=== PATIENT | male | born 1970 | race Caucasian/White ===

== ENCOUNTER → 2023-10-01 07:26 | Outpatient (REF) | payer OTHER, SELFPAY ==
[2023-10-01 08:00] VITALS: BP 114/89; BP_SYST 67
[2023-10-01 10:23] VITALS: BP 113/76
[2023-10-01 11:36] LABS: Body Fluid Mononuclear 67.5 %; Body Fluid Polymorphonuclear 32.5 %; Body Fluid WBC 151 /CUMM
[2023-10-01 11:44] LABS: Body Fluid Second Tech EF
== END ==
LOC: RADI 07:26
PROVIDERS: ATTENDING PHYSICIAN Internal Medicine Gastroenterology
DX: R18.8 Other ascites (principal)
CPT/HCPCS: 49083; 87015; 87070; 87205; 89051

== ENCOUNTER 2023-10-07 06:24 | Day surgery (SDC) | payer OTHER, SELFPAY ==
[2023-10-07 08:23] VITALS: BMI 24.1
[2023-10-07 08:24] VITALS: BP 125/88
[2023-10-07] MEDS: CIPRO 400 MG 200 IV (09:31)
[2023-10-07 10:45] VITALS: BP 130/70
[2023-10-07 11:00] VITALS: BP 128/74
== END 2023-10-07 11:25 | disposition home or self-care (01) ==
LOC: GI 06:24
PROVIDERS: ATTENDING PHYSICIAN Internal Medicine Gastroenterology
DX: Z12.11 Encounter for screening for malignant neoplasm of colon (principal); K64.8 Other hemorrhoids; K55.20 Angiodysplasia of colon without hemorrhage; K74.60 Unspecified cirrhosis of liver; K76.6 Portal hypertension; K31.89 Other diseases of stomach and duodenum; I85.10 Secondary esophageal varices without bleeding; K29.50 Unspecified chronic gastritis without bleeding
CPT/HCPCS: 43244; 43239; G0121; 88305; 88342

== ENCOUNTER → 2023-10-08 07:28 | Outpatient (REF) | payer OTHER, SELFPAY ==
[2023-10-08 07:45] VITALS: BP 130/89; BP_SYST 72
[2023-10-08 08:54] VITALS: BP 115/92
[2023-10-08 09:40] LABS: Body Fluid WBC 143 /CUMM
[2023-10-08 09:49] LABS: Body Fluid Second Tech AMA
== END ==
LOC: RADI 07:28
PROVIDERS: ATTENDING PHYSICIAN Internal Medicine Gastroenterology
DX: R18.8 Other ascites (principal)
CPT/HCPCS: 49083; 87015; 87070; 87205; 89051

== ENCOUNTER → 2023-10-15 06:55 | Outpatient (REF) | payer OTHER, SELFPAY ==
[2023-10-15 07:10] VITALS: BP 124/85; BP_SYST 75
[2023-10-15 08:25] VITALS: BP 118/74; BP_SYST 75
[2023-10-15 08:53] LABS: Body Fluid Mononuclear 65.5 %; Body Fluid Polymorphonuclear 34.5 %; Body Fluid WBC 209 /CUMM
[2023-10-15 09:04] LABS: Body Fluid Second Tech EM
== END ==
LOC: RADI 06:55
PROVIDERS: ATTENDING PHYSICIAN Internal Medicine Gastroenterology
DX: R18.8 Other ascites (principal)
CPT/HCPCS: 49083; 87015; 87070; 87205; 89051

== ENCOUNTER → 2023-10-21 08:27 | Outpatient (REF) | payer OTHER, SELFPAY ==
[2023-10-21 08:49] VITALS: BP 131/74; BP_SYST 83
[2023-10-21 09:37] VITALS: BP 109/74; BP_SYST 68
[2023-10-21 10:22] VITALS: BP 109/74
[2023-10-21 11:19] LABS: Body Fluid Mononuclear 74.1 %; Body Fluid Polymorphonuclear 25.9 %; Body Fluid WBC 162 /CUMM
[2023-10-21 11:21] LABS: Body Fluid Second Tech EF
== END ==
LOC: RADI 08:27
PROVIDERS: ATTENDING PHYSICIAN Internal Medicine Gastroenterology
DX: R18.8 Other ascites (principal)
CPT/HCPCS: 49083; 87015; 87070; 87205; 89051

== ENCOUNTER → 2023-10-26 10:56 | Outpatient (REF) | payer OTHER, SELFPAY ==
[2023-10-26 11:15] VITALS: BP 135/88; BP_SYST 79
[2023-10-26 12:12] VITALS: BP 127/68
[2023-10-26 13:37] LABS: Body Fluid Mononuclear 77.6 %; Body Fluid Polymorphonuclear 22.4 %; Body Fluid WBC 138 /CUMM
[2023-10-26 14:26] LABS: Body Fluid Second Tech SS
== END ==
LOC: RADI 10:56
PROVIDERS: ATTENDING PHYSICIAN Internal Medicine Gastroenterology; FAMILY PHYSICIAN Internal Medicine
DX: R18.8 Other ascites (principal)
CPT/HCPCS: 49083; 87015; 87070; 87205; 89051

== ENCOUNTER 2023-10-26 12:51 | Outpatient (RCR) | payer OTHER, SELFPAY ==
[2023-10-08 09:15] VITALS: BP 114/75
[2023-10-08 09:34] VITALS: BP 114/75
[2023-10-08] MEDS: FLEXBUMIN 100 IV (09:34)
[2023-10-08] MEDS: FLEXBUMIN 50 IV (10:54)
[2023-10-08 10:55] VITALS: BP 92/65
[2023-10-08 11:30] VITALS: BP 93/65
[2023-10-15] MEDS: FLEXBUMIN 50 IV (08:52)
[2023-10-15 08:56] VITALS: BP 141/63
[2023-10-15] MEDS: FLEXBUMIN 100 IV (09:36)
[2023-10-15 09:37] VITALS: BP 99/60
[2023-10-15 10:55] VITALS: BP 105/60
[2023-10-21 10:40] VITALS: BP 95/63
[2023-10-21] MEDS: FLEXBUMIN 50 IV (10:51)
[2023-10-21 10:54] VITALS: BP 95/63
[2023-10-21] MEDS: FLEXBUMIN 100 IV (11:39)
[2023-10-21 11:40] VITALS: BP 90/56
[2023-10-21 13:11] VITALS: BP 101/66
[2023-10-26 12:59] VITALS: BP 110/78
[2023-10-26 13:12] VITALS: BP 112/62
[2023-10-26] MEDS: FLEXBUMIN 50 IV (13:12)
[2023-10-26 14:30] VITALS: BP 110/61
[2023-10-26] MEDS: FLEXBUMIN 100 IV (14:30)
[2023-10-26 16:00] VITALS: BP 112/60
== END 2023-10-27 08:21 | disposition home or self-care (01) ==
LOC: OID 12:51
PROVIDERS: ATTENDING PHYSICIAN Internal Medicine Gastroenterology; FAMILY PHYSICIAN Internal Medicine
DX: K70.31 Alcoholic cirrhosis of liver with ascites (principal)
CPT/HCPCS: 96365; 96366; P9047

== ENCOUNTER → 2023-10-29 06:58 | Outpatient (REF) | payer OTHER, SELFPAY ==
[2023-10-29 07:17] VITALS: BP 117/72; BP_SYST 71
[2023-10-29 08:16] VITALS: BP 114/58
[2023-10-29 08:42] LABS: Body Fluid Mononuclear 79.5 %; Body Fluid Polymorphonuclear 20.5 %; Body Fluid WBC 200 /CUMM
[2023-10-29 08:51] LABS: Body Fluid Second Tech AMA
== END ==
LOC: RADI 06:58
PROVIDERS: ATTENDING PHYSICIAN Internal Medicine Gastroenterology; FAMILY PHYSICIAN Internal Medicine
DX: R18.8 Other ascites (principal)
CPT/HCPCS: 49083; 87015; 87070; 87205; 89051

== ENCOUNTER → 2023-11-04 13:29 | Outpatient (REF) | payer OTHER, SELFPAY | LOC: RAD 13:29 | PROVIDERS: ATTENDING PHYSICIAN Internal Medicine Transplant Hepatology; FAMILY PHYSICIAN Internal Medicine | DX: Z01.818 Encounter for other preprocedural examination (principal) | CPT/HCPCS: 71046 ==

== ENCOUNTER → 2023-11-05 07:38 | Outpatient (REF) | payer OTHER, SELFPAY ==
[2023-11-05 07:51] VITALS: BP 120/77; BP_SYST 86
[2023-11-05 08:55] VITALS: BP 107/70
[2023-11-05 09:03] LABS: Body Fluid Mononuclear 72.3 %; Body Fluid Polymorphonuclear 27.7 %; Body Fluid WBC 181 /CUMM
[2023-11-05 09:05] LABS: Body Fluid Second Tech AMA
== END ==
LOC: RADI 07:38
PROVIDERS: ATTENDING PHYSICIAN Internal Medicine Gastroenterology
DX: R18.8 Other ascites (principal)
CPT/HCPCS: 49083; 87015; 87070; 87205; 89051

== ENCOUNTER → 2023-11-09 07:22 | Outpatient (REF) | payer OTHER, SELFPAY ==
[2023-11-09 07:40] VITALS: BP 123/82; BP_SYST 78
[2023-11-09 08:35] VITALS: BP 109/77; BP_SYST 75
[2023-11-09 09:00] VITALS: BP 109/77
[2023-11-09 09:11] LABS: Body Fluid Mononuclear 68.9 %; Body Fluid Polymorphonuclear 31.1 %; Body Fluid WBC 135 /CUMM
[2023-11-09 09:22] LABS: Body Fluid Second Tech AMA
== END ==
LOC: RADI 07:22
PROVIDERS: ATTENDING PHYSICIAN Internal Medicine Gastroenterology
DX: R18.8 Other ascites (principal)
CPT/HCPCS: 49083; 87015; 87070; 87205; 89051

== ENCOUNTER → 2023-11-12 07:27 | Outpatient (REF) | payer OTHER, SELFPAY ==
[2023-11-12 07:37] VITALS: BP 113/70; BP_SYST 71
[2023-11-12 08:14] VITALS: BP 110/59
[2023-11-12 08:57] LABS: Body Fluid Polymorphonuclear 17.1 %; Body Fluid WBC 199 /CUMM
[2023-11-12 08:58] LABS: Body Fluid Mononuclear 82.9 %
[2023-11-12 09:02] LABS: Body Fluid Second Tech AMA
== END ==
LOC: RADI 07:27
PROVIDERS: ATTENDING PHYSICIAN Internal Medicine Gastroenterology; FAMILY PHYSICIAN Internal Medicine
DX: R18.8 Other ascites (principal)
CPT/HCPCS: 49083; 87015; 87070; 87205; 89051

== ENCOUNTER → 2023-11-19 07:21 | Outpatient (REF) | payer OTHER, SELFPAY ==
[2023-11-19 07:43] VITALS: BP 115/67; BP_SYST 72
[2023-11-19 10:36] LABS: Body Fluid Mononuclear 80.9 %; Body Fluid Polymorphonuclear 19.1 %; Body Fluid WBC 178 /CUMM
[2023-11-19 10:40] LABS: Body Fluid Second Tech AMA
== END ==
LOC: RADI 07:21
PROVIDERS: ATTENDING PHYSICIAN Internal Medicine Gastroenterology; FAMILY PHYSICIAN Internal Medicine
DX: R18.8 Other ascites (principal)
CPT/HCPCS: 49083; 87015; 87070; 87205; 89051

== ENCOUNTER → 2023-11-26 07:19 | Outpatient (REF) | payer OTHER, SELFPAY ==
[2023-11-26 07:20] VITALS: BP 124/75; BP_SYST 72
[2023-11-26 08:30] VITALS: BP 100/60; BP_SYST 70
[2023-11-26 09:00] LABS: Body Fluid Mononuclear 83.3 %; Body Fluid Polymorphonuclear 16.7 %; Body Fluid WBC 150 /CUMM
[2023-11-26 09:01] LABS: Body Fluid Second Tech CF
[2023-11-26 09:08] VITALS: BP 100/60
== END ==
LOC: RADI 07:19
PROVIDERS: ATTENDING PHYSICIAN Internal Medicine Gastroenterology; FAMILY PHYSICIAN Internal Medicine
DX: R18.8 Other ascites (principal)
CPT/HCPCS: 49083; 87015; 87070; 87205; 89051

== ENCOUNTER 2023-11-26 08:54 | Outpatient (RCR) | payer OTHER, SELFPAY ==
[2023-11-05 09:20] VITALS: BP 120/62
[2023-11-05 09:24] VITALS: BP 120/62
[2023-11-05] MEDS: FLEXBUMIN 50 IV (09:24)
[2023-11-05] MEDS: FLEXBUMIN 100 IV (10:06)
[2023-11-05 10:07] VITALS: BP 109/58
[2023-11-05 11:30] VITALS: BP 109/55
[2023-11-09 09:05] VITALS: BP 117/68
[2023-11-09] MEDS: FLEXBUMIN 50 IV (09:05)
[2023-11-09 09:10] VITALS: BP 117/68
[2023-11-09] MEDS: FLEXBUMIN 100 IV (09:52)
[2023-11-09 10:00] VITALS: BP 118/73
[2023-11-09 11:19] VITALS: BP 97/65
[2023-11-19 09:10] VITALS: BP 110/59
[2023-11-19 09:17] VITALS: BP 110/59
[2023-11-19] MEDS: FLEXBUMIN 50 IV (09:17)
[2023-11-19] MEDS: FLEXBUMIN 100 IV (10:04)
[2023-11-19 10:07] VITALS: BP 99/54
[2023-11-19 11:35] VITALS: BP 90/43
[2023-11-26 09:05] VITALS: BP 104/73
[2023-11-26 09:12] VITALS: BP 104/73
[2023-11-26] MEDS: FLEXBUMIN 100 IV (09:12)
[2023-11-26] MEDS: FLEXBUMIN 50 IV (10:38)
[2023-11-26 10:40] VITALS: BP 84/63
[2023-11-26 11:20] VITALS: BP 100/50
== END 2023-11-28 23:59 | disposition home or self-care (01) ==
LOC: OID 08:54
PROVIDERS: ATTENDING PHYSICIAN Internal Medicine Gastroenterology; FAMILY PHYSICIAN Internal Medicine
DX: K70.31 Alcoholic cirrhosis of liver with ascites (principal)
CPT/HCPCS: 96365; 96366; P9047

== ENCOUNTER → 2023-12-03 07:16 | Outpatient (REF) | payer OTHER, SELFPAY ==
[2023-12-03 07:40] VITALS: BP 121/83; BP_SYST 70
[2023-12-03 09:00] VITALS: BP 108/64
[2023-12-03 09:18] LABS: Body Fluid Polymorphonuclear 17.5 %; Body Fluid WBC 120 /CUMM
[2023-12-03 09:19] LABS: Body Fluid Mononuclear 82.5 %
[2023-12-03 09:20] LABS: Body Fluid Second Tech AMA
== END ==
LOC: RADI 07:16
PROVIDERS: ATTENDING PHYSICIAN Internal Medicine Gastroenterology; FAMILY PHYSICIAN Internal Medicine
DX: R18.8 Other ascites (principal)
CPT/HCPCS: 49083; 87015; 87070; 87205; 89051

== ENCOUNTER → 2023-12-10 07:18 | Outpatient (REF) | payer OTHER, SELFPAY ==
[2023-12-10 07:33] VITALS: BP 120/82; BP_SYST 85
[2023-12-10 08:34] VITALS: BP 106/60
[2023-12-10 10:28] LABS: Body Fluid WBC 101 /CUMM
[2023-12-10 10:29] LABS: Body Fluid Mononuclear 82.1 %; Body Fluid Polymorphonuclear 17.9 %
[2023-12-10 10:30] LABS: Body Fluid Second Tech EF
== END ==
LOC: RADI 07:18
PROVIDERS: ATTENDING PHYSICIAN Internal Medicine Gastroenterology
DX: R18.8 Other ascites (principal)
CPT/HCPCS: 49083; 87015; 87070; 87205; 89051

== ENCOUNTER 2023-12-10 08:57 | Outpatient (RCR) | payer OTHER, SELFPAY ==
[2023-12-03 09:10] VITALS: BP 98/48
[2023-12-03 09:12] VITALS: BP 98/48
[2023-12-03] MEDS: FLEXBUMIN 100 IV (09:12)
[2023-12-03 09:15] VITALS: BP 98/48
[2023-12-03] MEDS: FLEXBUMIN 50 IV (10:44)
[2023-12-03 10:46] VITALS: BP 98/48
[2023-12-03 11:45] VITALS: BP 94/49
[2023-12-10 09:10] VITALS: BP 102/66
[2023-12-10] MEDS: FLEXBUMIN 50 IV (09:10)
[2023-12-10] MEDS: FLEXBUMIN 100 IV (09:53)
[2023-12-10 09:54] VITALS: BP 95/60
[2023-12-10 11:20] VITALS: BP 90/54
== END 2023-12-28 15:24 | disposition home or self-care (01) ==
LOC: OID 08:57
PROVIDERS: ATTENDING PHYSICIAN Internal Medicine Gastroenterology; FAMILY PHYSICIAN Internal Medicine
DX: K70.31 Alcoholic cirrhosis of liver with ascites (principal)
CPT/HCPCS: 49083; 87015; 87070; 87205; 89051; 96365; 96366; P9047

== ENCOUNTER → 2023-12-24 07:22 | Outpatient (REF) | payer OTHER, SELFPAY ==
[2023-12-24 07:49] VITALS: BP 124/77; BP_SYST 70
[2023-12-24 09:16] VITALS: BP 131/77
[2023-12-24 09:34] LABS: Body Fluid Mononuclear 82.9 %; Body Fluid Polymorphonuclear 17.1 %; Body Fluid WBC 152 /CUMM
[2023-12-24 09:35] LABS: Body Fluid Second Tech CS
== END ==
LOC: RADI 07:22
PROVIDERS: ATTENDING PHYSICIAN Internal Medicine Gastroenterology; FAMILY PHYSICIAN Internal Medicine
DX: R18.8 Other ascites (principal)
CPT/HCPCS: 49083; 87015; 87070; 87205; 89051

== ENCOUNTER → 2023-12-31 07:18 | Outpatient (REF) | payer OTHER, SELFPAY ==
[2023-12-31 07:45] VITALS: BP 127/78; BP_SYST 71
[2023-12-31 08:58] LABS: Body Fluid WBC 151 /CUMM
[2023-12-31 08:59] LABS: Body Fluid Mononuclear 74.8 %; Body Fluid Polymorphonuclear 25.2 %
[2023-12-31 09:02] LABS: Body Fluid Second Tech AMA
== END ==
LOC: RADI 07:18
PROVIDERS: ATTENDING PHYSICIAN Internal Medicine Gastroenterology; FAMILY PHYSICIAN Internal Medicine
DX: R18.8 Other ascites (principal)
CPT/HCPCS: 49083; 87015; 87070; 87205; 89051

== ENCOUNTER → 2024-01-07 07:20 | Outpatient (REF) | payer OTHER, SELFPAY ==
[2024-01-07 07:30] VITALS: BP 127/84; BP_SYST 73
[2024-01-07 08:31] VITALS: BP 115/79; BP_SYST 74
[2024-01-07 08:37] VITALS: BP 115/79
[2024-01-07 10:17] LABS: Body Fluid Mononuclear 75.3 %; Body Fluid Polymorphonuclear 24.7 %; Body Fluid WBC 142 /CUMM
[2024-01-07 10:30] LABS: Body Fluid Second Tech CMB
== END ==
LOC: RADI 07:20
PROVIDERS: ATTENDING PHYSICIAN Internal Medicine Gastroenterology
DX: R18.8 Other ascites (principal)
CPT/HCPCS: 49083; 87015; 87070; 87205; 89051

== ENCOUNTER → 2024-01-14 07:17 | Outpatient (REF) | payer OTHER, SELFPAY ==
[2024-01-14 07:39] VITALS: BP 124/80; BP_SYST 63
[2024-01-14 08:07] VITALS: BP 111/83
[2024-01-14 09:06] LABS: Body Fluid Mononuclear 81.4 %; Body Fluid Polymorphonuclear 18.6 %; Body Fluid WBC 161 /CUMM
[2024-01-14 09:39] LABS: Body Fluid Second Tech AMA
== END ==
LOC: RADI 07:17
PROVIDERS: ATTENDING PHYSICIAN Internal Medicine Gastroenterology; FAMILY PHYSICIAN Internal Medicine
DX: R18.8 Other ascites (principal)
CPT/HCPCS: 49083; 89051

== ENCOUNTER → 2024-01-28 07:25 | Outpatient (REF) | payer OTHER, SELFPAY ==
[2024-01-28 07:35] VITALS: BP 126/86; BP_SYST 73
[2024-01-28 08:03] VITALS: BP 124/79
[2024-01-28 09:31] LABS: Body Fluid Mononuclear 84.1 %; Body Fluid Polymorphonuclear 15.9 %; Body Fluid WBC 320 /CUMM
[2024-01-28 09:33] LABS: Body Fluid Second Tech CF
== END ==
LOC: RADI 07:25
PROVIDERS: ATTENDING PHYSICIAN Internal Medicine Gastroenterology; FAMILY PHYSICIAN Internal Medicine
DX: R18.8 Other ascites (principal)
CPT/HCPCS: 49083; 87015; 87070; 87205; 89051

== ENCOUNTER → 2024-02-25 07:30 | Outpatient (REF) | payer OTHER, SELFPAY ==
[2024-02-25 08:05] VITALS: BP 130/95; BP_SYST 76
== END ==
LOC: RADI 07:30
PROVIDERS: ATTENDING PHYSICIAN Internal Medicine Gastroenterology
DX: R18.8 Other ascites (principal); Z53.8 Procedure and treatment not carried out for other reasons
CPT/HCPCS: 76705

== ENCOUNTER → 2024-03-31 07:50 | Outpatient (REF) | payer OTHER, SELFPAY | LOC: HWRAD 07:50 | PROVIDERS: ATTENDING PHYSICIAN Nurse Practitioner Family; FAMILY PHYSICIAN Internal Medicine | DX: K74.69 Other cirrhosis of liver (principal); Z95.828 Presence of other vascular implants and grafts | CPT/HCPCS: 76700; 93975 ==

== ENCOUNTER 2024-11-13 17:20 | Inpatient (IN) | payer OTHER, SELFPAY ==
[2024-11-13] VITALS (10 sets, daily range): BP systolic 111–153; BP diastolic 61–91; BMI 23.4
[2024-11-13 12:37] LABS: INR 1.58; PT 19.1 Sec (11.4-14.6)
[2024-11-13 12:38] LABS: APTT 41.6 Sec (23.4-35.0)
[2024-11-13 12:40] LABS: % Basophils 1.1 % (0-2); % Eosinophils 0.9 % (0-6); % Immature Granulocytes 0.9 % (0-0.5); % Lymphocytes 23.2 % (20.5-51.1); % Monocytes 8.5 % (1.7-9.3); % Neutrophils 65.4 % (42.2-75.2); Absolute Basophils 0.1 10^3/uL (0-0.2); Absolute Monocytes 0.4 10^3/uL (0.1-0.6); Absolute Neutrophils 2.8 10^3/uL (1.4-6.5); Hematocrit 33.8 % (39.0-52.0); Mean Corp Hgb Conc. 35.5 g/dL (33.0-37.0); Mean Corpuscular Hgb 33.1 pg (27.0-31.0); Mean Corpuscular Volume 93.1 fL (80.0-94.0); Nucleated Red Blood Cells % 0 % (-); Red Blood Cell Count 3.63 10^6/uL (4.70-6.10); Red Cell Dist. Width 15.5 % (11.5-14.5); White Blood Cell Count 4.4 10^3/uL (4.8-10.8)
[2024-11-13 12:49] LABS: Mean Platelet Volume 9.9 fL (7.4-10.4); Platelet Count 45 10^3/uL (130-400)
[2024-11-13 13:05] LABS: Albumin 4.2 g/dl (3.5-5.0); Alkaline Phosphatase 177 U/L (38-126); Blood Urea Nitrogen 11 mg/dl (9-20); Calcium 8.3 mg/dl (8.4-10.2); Carbon Dioxide 25 mmol/L (22-30); Chloride 104 mmol/L (98-107); Glucose 122 mg/dl (70-99); Sodium 144 mmol/L (135-145); Total Bilirubin 11.4 mg/dl (0.2-1.3); Total Protein 7.7 g/dl (6.3-8.2); eGFR > 60.00
[2024-11-13 13:06] LABS: ALT (SGPT) 90 U/L (0-50); AST (SGOT) 291 U/L (17-59)
--- NOTE | 2024-11-13 14:43 | EDRN ---
Alen NG in room w/pt at this time.
--- NOTE | 2024-11-13 14:56 | ED.GENMED ---
History of Present Illness
<Jessica Licea PA-C - Last Filed: 11/14/24 07:06>
General
Chief Complaint: Weakness
Source: patient and significant other
Exam Limitations: none
Time Seen by Provider: 11/13/24 14:11
Nursing documentation reviewed up to this point in time: agreed with
History of Present Illness
History of Present Illness:
54 y/o M with h/o alcohol cirrhosis
s/p TIPS doni kirby aug 2023
last bili was 5 in jul 2024
stable
until the past 3-4 days, increased confusion, poor sleep, poor appetite and increasing jaundic noticed by his S.O. who is a RN
pt is not on lactulose
pt has no fever, bleeding, abdominal pain, vomiting, neck pain, urinary syptmoms
Past History
<Jessica Licea PA-C - Last Filed: 11/14/24 07:06>
Past History
ED Past Medical History: Psychiatric (Previous suicide attempt, depression, anxiety, alcohol abuse); Negative HTN or Hypercholesterolemia
ED Past Surgical History: Other (Hernia repair)
Social History
Alcohol: Daily
Drug: None
Personal: Single
Living: with family
Employment: Employed
Family History
Family History: Other
Review of Systems
<Jessica Licea PA-C - Last Filed: 11/14/24 07:06>
Review of Systems
Allergies reviewed?: Yes
All Other Systems: Not applicable
Phy Exam
<Jessica Licea PA-C - Last Filed: 11/14/24 07:06>
Physical Exam
Physical Exam:
GENERAL: Alert , in no apparent distress
EYE: pupils equal and reactive , icteric
NECK: Supple
ENT: o/p clr, mmm.
CARDIAC: Regular rate and rhythm .no edema
LUNGS: Clear breath sounds bilaterally, no acute respiratory distress, no wheezes/rales/rhonchi
ABDOMEN: Soft, without focal tenderness, no r/g, no cvat, normal bowel sounds
NEUROLOGICAL: Alert and oriented x 3; a little confused at times; can answer questions but seems to confabulate a litttle + asterixis, CN intact, strength intact
pt was a little axatic for family member
SKIN: Warm and dry, skin intact. petechiae lower extremities;
MUSCULOSKELETAL: No edema, well perfused.
PSYCH: Normal and appropriate interaction.
Course
<Jessica Licea PA-C - Last Filed: 11/14/24 07:06>
Orders/Labs/Results
Orders:
Orders
11/13/24 Breakfast
Regular
11/13/24 12:14
Acetaminophen Urgent
Comment: ADD ON
Alcohol Urgent
Complete Blood Count/With Diff Urgent
Comprehensive Metabolic Panel Urgent
Direct Bilirubin Urgent
Comment: ADD ON
GGTP Urgent
Comment: ADDON
Magnesium Urgent
Comment: ADDON
PT/INR [Prothrombin Time] Urgent
Is patient on Coumadin/Warfarin?: No
Comment: [email or web address]
PTT Urgent
Phosphorus Urgent
Comment: ADDON
11/13/24 14:50
US Abdomen Complete/Upper Urgent
Comment:
Reason For Exam: cirrhosis, ams, elev t bili
11/13/24 15:02
Ammonia Urgent
Lactic Acid Urgent
11/13/24 15:29
Consult Gastroenterology [GASTROINTESTINAL CONSULT] Urgent
Consulting Provider: Elver Aj
Was physician already notified: Yes
11/13/24 16:01
Add On- LAB Urgent
Tests Added?: alcohol
11/13/24 16:05
Add On- LAB Urgent
Tests Added?: tylenol level
11/13/24 17:10
Admit/Transfer Patient As Directed
Co-Sign Provider:
Level of Care: Inpatient admission
Assign to:: Telemetry
Physician / Group: jacque
Diagnosis: acute alcoholi hepatitis
Reason for Telemetry: Other
Other Reason for Telemetry: alcohol withdrawl
Date to Stop Telemetry: 11/15/24
Time to Stop Telemetry: 11:00
Reason for Hospitalization: acute alcoholic hepatitis
Expected length of stay greater than two midnights?: Yes
ELOS- Estimated Length of Stay in days: 3
I certify the patient meets the requirements for IP care: Yes
11/13/24 17:11
Code Status As Directed
Resuscitation Status: Do not resuscitate
Reached after discussion with pt or family/Healthcare POA: Yes
PRN Pain Medication Management As Directed
May give lesser potent ordered pain med per pt: Yes
preference::
Protocol:: Medication orders for pain may be administered in a
manner that supports deferring to patient preference
when the pt is:
- Requesting an ordered lesser potent pain medication.
Least to most potent pain medications are defined
as: acetaminophen < NSAID < tramadol < opioids
(morphine, oxycodone, hydromorphone).
- Requesting a lesser dose of the same medication IF
ORDERED.
- Requesting a less intrusive route of administration
if both routes are prescribed by the provider (PO <
IV).
11/13/24 17:15
DNR Bracelet Application ONCE
11/13/24 17:22
0.9% Sodium Chloride [Nss (Preservative Free)] See Protocol IV PRN PRN
Lorazepam [Ativan] 1 mg IV Q1HPRN PRN
Lorazepam [Ativan] 1 mg PO Q2HPRN PRN
Lorazepam [Ativan] 2 mg IV Q1HPRN PRN
11/13/24 17:22
MSAS SCORE As Directed
MSAS Score 0-4: Repeat MSAS every 2 hours until 0-4 for three consecutive assessments, then every 4 hours x 48
hours.
MSAS Score 5-7: For MILD withdrawl symptoms. Repeat MSAS and RASS every 2 hours
MSAS Score 8-11: For MODERATE withdrawal symptoms. Repeat MSAS and RASS every 1 hour. Consider ICU or IMU
level of care.
MSAS Score > 11: For SEVERE withdrawal symptoms. Repeat MSAS and RASS every 1 hour. Notify provider, consider
ICU level of care.
MSAS Additional Instructions: If no improvement or no decrease in score from severe to moderate within 12
hours, consult psychiatry
MSAS Notify Provider: Notify provider if patient requires more than 10 mg of Lorazepam in eight hour period.
11/13/24 19:23
Bisacodyl [Dulcolax] 10 mg RECTAL [id number] PRN
Docusate W/Senna [Senokot-S] 1 tablet PO BIDPRN PRN
FOLic ACID [Folvite] 1 mg 0.9% Sodium Chloride 50 ml [Nss] 50 ml IV DAILYPRN
Polyethylene Glycol Powder [Miralax] 17 grams PO DAILYPRN PRN
11/13/24 19:23
Case Management Consult Once
Case Management Consult: Other
Comment: Substance abuse counseling
DIETARY CONSULT Routine
Reason for Consult: Nutrition support, possible refeeding guidelines
Urine Drug Abuse Screen Routine
Date Specimen was Collected: 11/14/24
Time Specimen was Collected: 02:50
Activity As Directed
Activity Level: As Tolerated
Intake/ Output As Directed
Frequency: Per unit guidelines
Venous Foot Pumps As Directed
Location: Bilateral feet
Vital Signs As Directed
Frequency: Per unit guidelines
Weight As Directed
Frequency: Daily
DX Deep Vein Thrombosis Video Routine
11/13/24 20:00
Thiamine Injection 200 mg IV Q12
11/13/24 20:37
PTT Urgent
Prothrombin Time Urgent
11/13/24 22:00
Diphenhydramine [Benadryl] 25 mg PO HSPRN PRN
Lactulose [Duphalac/Chronulac] 20 grams PO TID
Phenobarbital Sodium [Phenobarbital] 97.5 mg IV TID
11/14/24 06:00
Ammonia IN AM
Complete Blood Count/No Diff IN AM
Comprehensive Metabolic Panel IN AM
11/14/24 08:00
FOLic ACID [Folvite] 1 mg PO DAILY
Furosemide [Lasix] 40 mg PO DAILY
Spironolactone [Aldactone] 100 mg PO DAILY
11/15/24 06:00
Complete Blood Count/No Diff IN AM
Comprehensive Metabolic Panel IN AM
11/15/24 11:00
DC Protocol for Telemetry ONCE
11/15/24 22:00
Phenobarbital [Luminal] 64.8 mg PO TID
11/16/24 06:00
Complete Blood Count/No Diff IN AM
Comprehensive Metabolic Panel IN AM
11/16/24 20:00
Thiamine HCl [Vitamin B1] 100 mg PO BID
11/17/24 06:00
Complete Blood Count/No Diff IN AM
Comprehensive Metabolic Panel IN AM
11/17/24 22:00
Phenobarbital [Luminal] 32.4 mg PO TID
Abnormal Lab Results
11/13/24 11/13/24
12:14 15:02
WBC 4.4 L 10^3/uL
(4.8-10.8)
RBC 3.63 L 10^6/uL
(4.70-6.10)
Hgb 12.0 L g/dL
(13.0-18.0)
Hct 33.8 L %
(39.0-52.0)
MCH 33.1 H pg
(27.0-31.0)
RDW 15.5 H %
(11.5-14.5)
Plt Count 45 L 10^3/uL
(130-400)
Absolute Lymphs (auto) 1.0 L 10^3/uL
(1.2-3.4)
Immature Gran % 0.9 H %
(0-0.5)
PT 19.1 H Sec
(11.4-14.6)
APTT 41.6 H Sec
(23.4-35.0)
Creatinine 0.5 L mg/dL
(0.7-1.3)
Glucose 122 H mg/dl
(70-99)
Lactic Acid 2.3 H mmol/L
(0.7-2.0)
Calcium 8.3 L mg/dl
(8.4-10.2)
Total Bilirubin 11.4 H mg/dl
(0.2-1.3)
Direct Bilirubin 5.7 H mg/dl
(0.0-0.4)
GGT 683 H U/L
(15-73)
AST 291 H U/L
(17-59)
ALT 90 H U/L
(0-50)
Alkaline Phosphatase 177 H U/L
(38-126)
Ammonia 34 H umol/L
(9-30)
Acetaminophen < 10 L ug/ml
(10-30)
Alcohol, Quantitative 484 H* mg/dl
11/13/24 12:14
11/13/24 12:14
Vital Signs
Initial and Last Documented VS:
Initial Vital Signs
Temp Pulse Resp BP Pulse Ox
36.6 C 82 16 128/91 97
11/13/24 12:07 11/13/24 12:07 11/13/24 12:07 11/13/24 12:07 11/13/24 12:07
Last Documented Vital Signs
Temp Pulse Resp BP Pulse Ox
36.6 C 77 20 124/69 96
11/14/24 02:59 11/14/24 02:59 11/14/24 02:59 11/14/24 02:59 11/14/24 02:59
<Terrance Romo PA-C - Last Filed: 11/13/24 16:43>
Orders/Labs/Results
Orders:
Orders
11/13/24 Breakfast
Regular
11/13/24 12:14
Acetaminophen Urgent
Comment: ADD ON
Alcohol Urgent
Complete Blood Count/With Diff Urgent
Comprehensive Metabolic Panel Urgent
Direct Bilirubin Urgent
Comment: ADD ON
GGTP Urgent
Comment: ADDON
Magnesium Urgent
Comment: ADDON
PT/INR [Prothrombin Time] Urgent
Is patient on Coumadin/Warfarin?: No
Comment: [email or web address]
PTT Urgent
Phosphorus Urgent
Comment: ADDON
11/13/24 14:50
US Abdomen Complete/Upper Urgent
Comment:
Reason For Exam: cirrhosis, ams, elev t bili
11/13/24 15:02
Ammonia Urgent
Lactic Acid Urgent
11/13/24 15:29
Consult Gastroenterology [GASTROINTESTINAL CONSULT] Urgent
Consulting Provider: Elver Aj
Was physician already notified: Yes
11/13/24 16:01
Add On- LAB Urgent
Tests Added?: alcohol
11/13/24 16:05
Add On- LAB Urgent
Tests Added?: tylenol level
11/13/24 17:10
Admit/Transfer Patient As Directed
Co-Sign Provider:
Level of Care: Inpatient admission
Assign to:: Telemetry
Physician / Group: jacque
Diagnosis: acute alcoholi hepatitis
Reason for Telemetry: Other
Other Reason for Telemetry: alcohol withdrawl
Date to Stop Telemetry: 11/15/24
Time to Stop Telemetry: 11:00
Reason for Hospitalization: acute alcoholic hepatitis
Expected length of stay greater than two midnights?: Yes
ELOS- Estimated Length of Stay in days: 3
I certify the patient meets the requirements for IP care: Yes
11/13/24 17:11
Code Status As Directed
Resuscitation Status: Do not resuscitate
Reached after discussion with pt or family/Healthcare POA: Yes
PRN Pain Medication Management As Directed
May give lesser potent ordered pain med per pt: Yes
preference::
Protocol:: Medication orders for pain may be administered in a
manner that supports deferring to patient preference
when the pt is:
- Requesting an ordered lesser potent pain medication.
Least to most potent pain medications are defined
as: acetaminophen < NSAID < tramadol < opioids
(morphine, oxycodone, hydromorphone).
- Requesting a lesser dose of the same medication IF
ORDERED.
- Requesting a less intrusive route of administration
if both routes are prescribed by the provider (PO <
IV).
11/13/24 17:15
DNR Bracelet Application ONCE
11/13/24 17:22
0.9% Sodium Chloride [Nss (Preservative Free)] See Protocol IV PRN PRN
Lorazepam [Ativan] 1 mg IV Q1HPRN PRN
Lorazepam [Ativan] 1 mg PO Q2HPRN PRN
Lorazepam [Ativan] 2 mg IV Q1HPRN PRN
11/13/24 17:22
MSAS SCORE As Directed
MSAS Score 0-4: Repeat MSAS every 2 hours until 0-4 for three consecutive assessments, then every 4 hours x 48
hours.
MSAS Score 5-7: For MILD withdrawl symptoms. Repeat MSAS and RASS every 2 hours
MSAS Score 8-11: For MODERATE withdrawal symptoms. Repeat MSAS and RASS every 1 hour. Consider ICU or IMU
level of care.
MSAS Score > 11: For SEVERE withdrawal symptoms. Repeat MSAS and RASS every 1 hour. Notify provider, consider
ICU level of care.
MSAS Additional Instructions: If no improvement or no decrease in score from severe to moderate within 12
hours, consult psychiatry
MSAS Notify Provider: Notify provider if patient requires more than 10 mg of Lorazepam in eight hour period.
11/13/24 19:23
Bisacodyl [Dulcolax] 10 mg RECTAL [id number] PRN
Docusate W/Senna [Senokot-S] 1 tablet PO BIDPRN PRN
FOLic ACID [Folvite] 1 mg 0.9% Sodium Chloride 50 ml [Nss] 50 ml IV DAILYPRN
Polyethylene Glycol Powder [Miralax] 17 grams PO DAILYPRN PRN
11/13/24 19:23
Case Management Consult Once
Case Management Consult: Other
Comment: Substance abuse counseling
DIETARY CONSULT Routine
Reason for Consult: Nutrition support, possible refeeding guidelines
Urine Drug Abuse Screen Routine
Date Specimen was Collected: 11/14/24
Time Specimen was Collected: 02:50
Activity As Directed
Activity Level: As Tolerated
Intake/ Output As Directed
Frequency: Per unit guidelines
Venous Foot Pumps As Directed
Location: Bilateral feet
Vital Signs As Directed
Frequency: Per unit guidelines
Weight As Directed
Frequency: Daily
DX Deep Vein Thrombosis Video Routine
11/13/24 20:00
Thiamine Injection 200 mg IV Q12
11/13/24 20:37
PTT Urgent
Prothrombin Time Urgent
11/13/24 22:00
Diphenhydramine [Benadryl] 25 mg PO HSPRN PRN
Lactulose [Duphalac/Chronulac] 20 grams PO TID
Phenobarbital Sodium [Phenobarbital] 97.5 mg IV TID
11/14/24 06:00
Ammonia IN AM
Complete Blood Count/No Diff IN AM
Comprehensive Metabolic Panel IN AM
11/14/24 08:00
FOLic ACID [Folvite] 1 mg PO DAILY
Furosemide [Lasix] 40 mg PO DAILY
Spironolactone [Aldactone] 100 mg PO DAILY
11/15/24 06:00
Complete Blood Count/No Diff IN AM
Comprehensive Metabolic Panel IN AM
11/15/24 11:00
DC Protocol for Telemetry ONCE
11/15/24 22:00
Phenobarbital [Luminal] 64.8 mg PO TID
11/16/24 06:00
Complete Blood Count/No Diff IN AM
Comprehensive Metabolic Panel IN AM
11/16/24 20:00
Thiamine HCl [Vitamin B1] 100 mg PO BID
11/17/24 06:00
Complete Blood Count/No Diff IN AM
Comprehensive Metabolic Panel IN AM
11/17/24 22:00
Phenobarbital [Luminal] 32.4 mg PO TID
Abnormal Lab Results
11/13/24 11/13/24
12:14 15:02
WBC 4.4 L 10^3/uL
(4.8-10.8)
RBC 3.63 L 10^6/uL
(4.70-6.10)
Hgb 12.0 L g/dL
(13.0-18.0)
Hct 33.8 L %
(39.0-52.0)
MCH 33.1 H pg
(27.0-31.0)
RDW 15.5 H %
(11.5-14.5)
Plt Count 45 L 10^3/uL
(130-400)
Absolute Lymphs (auto) 1.0 L 10^3/uL
(1.2-3.4)
Immature Gran % 0.9 H %
(0-0.5)
PT 19.1 H Sec
(11.4-14.6)
APTT 41.6 H Sec
(23.4-35.0)
Creatinine 0.5 L mg/dL
(0.7-1.3)
Glucose 122 H mg/dl
(70-99)
Lactic Acid 2.3 H mmol/L
(0.7-2.0)
Calcium 8.3 L mg/dl
(8.4-10.2)
Total Bilirubin 11.4 H mg/dl
(0.2-1.3)
Direct Bilirubin 5.7 H mg/dl
(0.0-0.4)
GGT 683 H U/L
(15-73)
AST 291 H U/L
(17-59)
ALT 90 H U/L
(0-50)
Alkaline Phosphatase 177 H U/L
(38-126)
Ammonia 34 H umol/L
(9-30)
Acetaminophen < 10 L ug/ml
(10-30)
Alcohol, Quantitative 484 H* mg/dl
11/13/24 12:14
11/13/24 12:14
Vital Signs
Initial and Last Documented VS:
Initial Vital Signs
Temp Pulse Resp BP Pulse Ox
36.6 C 82 16 128/91 97
11/13/24 12:07 11/13/24 12:07 11/13/24 12:07 11/13/24 12:07 11/13/24 12:07
Last Documented Vital Signs
Temp Pulse Resp BP Pulse Ox
36.6 C 77 20 124/69 96
11/14/24 02:59 11/14/24 02:59 11/14/24 02:59 11/14/24 02:59 11/14/24 02:59
<Jessica Licea PA-C - Last Filed: 11/14/24 07:06>
MDM/Problems Addressed
Differential Diagnosis Includes:
encephalopathy, hepatitis, alcohol abuse, tylenol overdose
MDM/Problems Addressed:
54 y/o M cirrhosis, alcohol use history, esophageal varices h/o TIPS in aug 2023
here with 3-4 days dec appetite, not sleeping well, and inc confusion, inc in jaundice
last bili outpatient was 5 in july 2024, now 11 today
pt has some asterixis and mild confusion/encephalopathy; lfts specifically pt's T bili are bumped, with bili 11
meld today is 23
pt apaprently was too weak to walk around and seemed to be off balance
sp[place] dr. aj from GI who will consult
US IMPRESSION:
Contracted gallbladder. 4 mm shadowing gallstone is present. No evidence for pericholecystic edema, and the patient has a negative sonographic Tipton's sign.
There is no evidence for biliary ductal dilation.
Diffuse increased echogenicity of the liver with increased attenuation of the ultrasound beam, findings compatible with hepatocellular disease and/or fatty infiltration in this patient with a history of cirrhosis. TIPS shunt is visualized and is
patent.
Mild splenomegaly.
ammonia 34
1615: GI seeing patient now
<Terrance Romo PA-C - Last Filed: 11/13/24 16:43>
*Critical Care Note
Total Time (30-74mins, 75-104mins- exclusive of procedures): Not Applicable
<Terrance Romo PA-C - Last Filed: 11/13/24 16:43>
Update Note
Update Note:
Assumed care of patient pending GI evaluation. GI team did see the patient. Alcohol level returned at 484. GI team concerned about acute alcoholic hepatitis. They recommended admission to hospital. Hospitalist made aware
ED Attending Note
<Jessica Licea PA-C - Last Filed: 11/14/24 07:06>
-
Portions of this chart may have been created with voice recognition software.� Occasional wrong word or��sound alike� substitutions may have occurred due to the inherent limitations of voice recognition software.
Discharge Plan
Departure
Patient Disposition: Admit
Date of Disposition: 11/13/24
Time of Disposition: 16:43
Presentation/result/management discussed w/ accepting MD/DO: Hospitalist
Discharge Problem:
Acute alcoholic hepatitis
Interventions
Interventions:
*Risk Screen - Suicide Last Done: 11/13/24 12:10
*General Assessment Last Done: 11/13/24 15:08
*Neglect/Abuse Screening Last Done: 11/13/24 12:10
*ED- Fall Risk Assessment Last Done: 11/13/24 15:08
*ED COVID-19 Vaccine History Last Done: 11/13/24 20:46
*Nursing Disposition Last Done: 11/13/24 19:28
ED- Cardiac Assessment Last Done: 11/13/24 15:08
ED- Neurological Assessment Last Done: 11/13/24 15:08
ED- Pulmonary Assessment Last Done: 11/13/24 15:08
Discharge Date and Time
Discharge Date/Time: 11/13/24 19:29
[2024-11-13 15:20] LABS: Ammonia 34 umol/L (9-30); Lactic Acid 2.3 mmol/L (0.7-2.0)
[2024-11-13 16:20] LABS: Acetaminophen < 10 ug/ml (10-30)
--- NOTE | 2024-11-13 16:28 | EDRN ---
JOYCELYN REDDY and SEWING TECHNIQUES DEMONSTRATOR in room w/ pt at this time. Dr. Tinsley in room from GI now.
[2024-11-13 16:31] LABS: Alcohol 484 mg/dl
--- NOTE | 2024-11-13 16:34 | EDRN ---
ETOH 484, shown to Pradeep NG and GI MD Dr Tinsley.
--- NOTE | 2024-11-13 16:44 | HPS.HSE ---
Family Physician
-
Family Physician: * NONE
Chief Complaint
-
confusion
weakness
History of Present Illness
54 y/o M with h/o alcohol cirrhosis s/p TIPS doni dr. kirby aug 2023 presented with 3-4 days of worsening confusion for past one months. for past few days worsening poor appetite increasing jaundice. today he was very weak, his balance were off.
today he was not able to stop. he is been incontinence of urine and his noticed dark urine. denied HUSSEIN, fever, chills, chest pain, sob. denied abdominal pain,n,v,d. denied dysuria or hematuria. patient is an alcoholic. his last drink was last
night. he stopped drinking during the TIPS procedure. he started drinking in July due personal issues,which relaxes him.
admitting for further management.
Medical History
Past Medical History
Past Medical History: Reports Other
Additional Past Medical History:
Esophageal varices without bleeding
Cirrhosis of liver without ascites
Right inguinal hernia
Lumbar degenerative disc disease
Alcohol use disorder
Alcoholic cirrhosis of liver with ascites
Hepatic encephalopathy
Thrombocytopenia
Alcoholic
Seizure
Past Surgical History: Reports Other
Additional Past Surgical History:
Right inguinal hernia surgery
Social History
Tobacco: Smoker (3-4 ciggrettes daily)
Alcohol: Daily (vodka)
Drug: Other (MJ)
Personal:
Living: With Family
Employment: Not Employed
Family History
Family History: Not pertinent
Allergies / Home Medications
Allergies reflects when Allergies were last updated in [facility].
Home Medications with original date entered in [facility]
Allergy/Medication List:
Allergies
Allergy/AdvReac Type Severity Reaction Status Date / Time
No Known Allergies Allergy Verified 01/07/24 07:39
Home Medications
diphenhydramine HCl 25 mg capsule (Benadryl) 25 mg PO HSPRN PRN SLEEP 11/13/24
folic acid 1 mg tablet 1 mg PO DAILY 11/13/24
furosemide 40 mg tablet 40 mg PO DAILY 11/13/24
spironolactone 100 mg tablet 100 mg PO DAILY 11/13/24
thiamine HCl (vitamin B1) 100 mg tablet 100 mg PO DAILY 11/13/24
Review of Systems
-
Constitutional: Reports Fatigue
EENT: Reports No Symptoms
Respiratory: Reports No Symptoms
Cardiac: Reports No Symptoms
Abdomen/GI: Reports No Symptoms
: Reports No Symptoms
Musculoskeletal: Reports No Symptoms
Skin: Reports No Symptoms
Neurological: Reports Dizzy and Weakness
Endocrine: Reports No Symptoms
Hematologic/Lymphatic: Reports No Symptoms
Psych: Reports No Symptoms
Physical Exam
Vital Signs
Vital Signs
Temp Pulse Resp BP Pulse Ox
97.9 F 87 16 131/74 96
11/13/24 12:07 11/13/24 16:19 11/13/24 16:19 11/13/24 16:19 11/13/24 16:19
Physical Exam
General: Well Developed, Well Nourished and No Apparent Distress
HEENT: NormoCephalic, Moist mucous membranes and Atraumatic
Respiratory: Clear
Cardiac: S1/S2 and Regular Rhythm; No Murmur or Rub
GI: Soft, Non Tender, Non Distended and Normal Bowel Sounds; No Organomegaly
Rectal: Deferred by Provider
Musculoskeletal: No Clubbing, No Cyanosis and No Edema
Skin: Rash and Jaundice
Neuro: AO x 3 and Nonfocal/grossly intact
Psych: Calm
Laboratory Results
-
11/13/24 12:14
11/13/24 12:14
Laboratory Results
PT 19.1 Sec (11.4-14.6) H 11/13/24 12:14
INR 1.58 11/13/24 12:14
APTT 41.6 Sec (23.4-35.0) H 11/13/24 12:14
Lactic Acid 2.3 mmol/L (0.7-2.0) H 11/13/24 15:02
Total Bilirubin 11.4 mg/dl (0.2-1.3) H 11/13/24 12:14
AST 291 U/L (17-59) H 11/13/24 12:14
ALT 90 U/L (0-50) H 11/13/24 12:14
Alkaline Phosphatase 177 U/L (38-126) H 11/13/24 12:14
Data Reviewed
-
Lab Data: Labs Reviewed by me
Impression/Plan
-
# Increased jaundice/hepatic encephalopathy concern for acute alcoholic hepatitis
#history of cirrhosis
# History of TIPS procedure in [place]
-Abdominal ultrasound with impression of Contracted gallbladder. 4 mm shadowing gallstone is present. No evidence for pericholecystic edema, and the patient has a negative sonographic Tipton's sign.There is no evidence for biliary ductal
dilation.Diffuse increased echogenicity of the liver with increased attenuation of the ultrasound beam, findings compatible with hepatocellular disease and/or fatty infiltration in this patient with a history of cirrhosis. TIPS shunt is visualized
and is patent.
-lactulose added
-furosemide and spironolactone continued
-GI consulted
# Acute on chronic thrombocytopenia likely due to alcohol abuse
-Platelets 45
-ctm
# Lactic acidosis/chronic transaminitis/elevated ammonia level
-Lactic 2.3, total bili 11.4, AST 291, ALT 90, ALK 1 77, ammonia 34
-ctm
#Severe alcohol use disorder
-phenobarbital set
-alcoholic protocol
-monitor MSAS score.
#hxt of Esophageal varices
DNR
scd
--- NOTE | 2024-11-13 16:45 | CON.GI ---
Addendum entered and electronically signed by Elver Tinsley MD 11/13/24 18:24:
I saw and examined the patient.
The PA's note was reviewed and I agree with the note.
Comment:
54 year old male with h/o alcohol induced decompensated cirrhosis with ascites, grade 3 esophageal varices with red williams sign status post banding x 5 (09/2023), s/p on TIPS 11/2023 (followed at [facility]) who p/w increasing
confusion and jaundice. He admits to drinking again, about 1 pint of vodka daily since 07/2024. Positive alcohol level of 484. Bilirubin 11.4, AST 291, ALT 90, alk phos 177. He does have a lactic acid of 2.3. Madrey DF 32.1. US abdo did not
show any significant ascites. TIPS is patent. Will rule out infection before initiating prednisolone. Alcohol withdrawal protocol. Enteral feeding.
Original Note:
Consultation
-
Date/Time Consultation Requested: 11/13/24 1600
Date/Time Consultation Performed: 11/13/24 1615
Requesting Provider: HERNANDEZ Spencer
Performing Provider: Dr. Tinsley/CARLOTA Mason
Reason for Consultation: elevated LFTs
Medical History
Chief Complaint / HPI
Chief Complaint: jaundice
History of Present Illness:
54 y/o male with past medical history of alcohol abuse with prior seizure, decompensated cirrhosis with ascites, grade 3 esophageal varices with red williams sign status post banding x 5 (09/2023), status post TIPS 11/2023 (followed at [facility]), no paracentesis since TIPS, thrombocytopenia, depression, anxiety, hernia repair, has gone through liver transplant eval at [facility] was removed from transplant ready list given low MELD. Follows with [facility] routinely with
last set of labs in July. Immune to hepatitis A. Has gone through hepatitis B vaccine series. Due for routine MRI surveillance. Current medications include Lasix 40 mg, spironolactone 100 mg, thiamine 100 mg and folic acid 1 mg daily who
presents to the emergency room with increasing confusion and jaundice. Asked to evaluate for the same. His significant other who is an RN has noticed that over the past couple days she has noticed jaundice. She has also noticed that he has not
been able to recall things that she tells him. He has noticed some darker urine over the past couple days. He also admits to emotional lability. He does smoke couple cigarettes a day. He admits to marijuana use from dispensary. After further
discussion the patient does admit to drinking alcohol since July. He did stop for a while. Then resumed drinking. He is drinking up to a pint of vodka. Asked ER to perform EtOH level which is currently 484, seen Acetaminophen level less than
10, tox screen pending. Lactic acid 2.3 WBC 4.4, hemoglobin 12.0, hematocrit 33.8, platelet 45, PT 19.1, INR 1.58, sodium 144, potassium 4.0, BUN 11, creatinine 0.5, glucose 122, total bilirubin 11.4, AST 291, ALT 90, alk phos 177, ammonia 34,
albumin 4.2. Richard discriminant function 32.1 MELD 3.0= 21.
Past Medical History
Past Medical History: Hypercholesterolemia, Psychiatric (anxiety/depression, ETOH abuse, prior suicide attempt ) and Other (decompensated ETOH cirrhosis, ascites, varices s/p TIPS, seizure disorder, hepatic encephalopathy, thrombocytopenia,
depression, anxiety)
Past Surgical History: Other (inguinal hernia repair, Lasik surgery, TIPS)
Social History
Tobacco: Smoker
Alcohol: Chronic Alcoholic (relapsed, previously sober , now drinking vodka up to a pint. )
Drug: Marijuana
Personal: Other (significant other )
Living: With Family (significant other )
Employment: Employed (but getting a Layoff from work in a few days )
Family History
Family History: Other (no family hx liver disease, or alcoholism)
Allergies / Home Medications
Allergy/AdvReac Type Severity Reaction Status Date / Time
No Known Allergies Allergy Verified 01/07/24 07:39
�Medication �Instructions �Recorded
furosemide 20 mg tablet 40 mg PO DAILY 10/07/23
spironolactone 50 mg tablet 100 mg PO DAILY 11/12/23
Vitamin B-2 1 cap PO DAILY 12/03/23
Review of Systems
-
All other systems: A 12 pt ROS was Negative except as stated above in HPI
Vital Signs
Temp Pulse Resp BP Pulse Ox
97.9 F 87 16 131/74 96
11/13/24 12:07 11/13/24 16:19 11/13/24 16:19 11/13/24 16:19 11/13/24 16:19
Physical Exam
Exam
General: Other (mild tremor)
HEENT: Other (icteric)
Respiratory: Clear
Cardiac: Regular Rhythm
GI: Soft, Non Tender, Non Distended and Normal Bowel Sounds
Musculoskeletal: No Edema
Skin: Warm and Dry
Neuro: AO x 3
Psych: Calm
Results
WBC 4.4 10^3/uL (4.8-10.8) L 11/13/24 12:14
Hgb 12.0 g/dL (13.0-18.0) L 11/13/24 12:14
Hct 33.8 % (39.0-52.0) L 11/13/24 12:14
MCV 93.1 fL (80.0-94.0) 11/13/24 12:14
Plt Count 45 10^3/uL (130-400) L 11/13/24 12:14
Absolute Neuts (auto) 2.8 10^3/uL (1.4-6.5) 11/13/24 12:14
PT 19.1 Sec (11.4-14.6) H 11/13/24 12:14
INR 1.58 11/13/24 12:14
APTT 41.6 Sec (23.4-35.0) H 11/13/24 12:14
Sodium 144 mmol/L (135-145) 11/13/24 12:14
Potassium 4.0 mmol/L (3.5-5.1) 11/13/24 12:14
Chloride 104 mmol/L (98-107) 11/13/24 12:14
Carbon Dioxide 25 mmol/L (22-30) 11/13/24 12:14
BUN 11 mg/dl (9-20) 11/13/24 12:14
Creatinine 0.5 mg/dL (0.7-1.3) L 11/13/24 12:14
Calcium 8.3 mg/dl (8.4-10.2) L 11/13/24 12:14
Total Bilirubin 11.4 mg/dl (0.2-1.3) H 11/13/24 12:14
AST 291 U/L (17-59) H 11/13/24 12:14
ALT 90 U/L (0-50) H 11/13/24 12:14
Alkaline Phosphatase 177 U/L (38-126) H 11/13/24 12:14
Diagnostic Image Results:
US Abd: Contracted gallbladder. 4 mm shadowing gallstone is present. No evidence for pericholecystic edema, and the patient has a negative sonographic Tipton's sign.
There is no evidence for biliary ductal dilation.
Diffuse increased echogenicity of the liver with increased attenuation of the ultrasound beam, findings compatible with hepatocellular disease and/or fatty infiltration in this patient with a history of cirrhosis. TIPS shunt is visualized and is
patent.
Mild splenomegaly.
Electronically signed by Alo Soler MD, 11/13/2024 4:12 PM
Prior GI Procedures:
EGD: 10/07/23 ([facility]) - Grade III esophageal varices with red williams sign.
Completely eradicated. Banded x 5.
- Portal hypertensive gastropathy. Biopsied.
- Normal examined duodenum.
Colonoscopy: 10/07/23 ([facility]) - Multiple non-bleeding colonic angioectasias.
- Internal hemorrhoids.
- The examination was otherwise normal.
- No specimens collected.
Assessment / Plan
-
54 y/o male with past medical history of alcohol abuse with prior seizure, decompensated cirrhosis with ascites, grade 3 esophageal varices with red williams sign status post banding x 5 (09/2023), status post TIPS 11/2023 (followed at [facility]), no paracentesis since TIPS, thrombocytopenia, depression, anxiety, hernia repair, has gone through liver transplant eval at [facility] was removed from transplant ready list given low MELD. Follows with [facility] routinely with
last set of labs in July. Immune to hepatitis A. Has gone through hepatitis B vaccine series. Due for routine MRI surveillance. Current medications include Lasix 40 mg, spironolactone 100 mg, thiamine 100 mg and folic acid 1 mg daily who
presents to the emergency room with increasing confusion and jaundice. Asked to evaluate for the same. Patient without any abdominal pain. Does admit to recurrent alcohol use. He states he started back up in July. He states he stopped
drinking on Wednesday however comes in with a positive alcohol level of 484. I was able to review his outside labs in April as well as July. His bilirubin started to rise in July as well as his AST. This corresponds to the time that he
admits to start drinking again. He also stopped obtaining his lab work since that time as well. Labs in April were total bilirubin 3.3, AST 78, ALT 37 alk phos of 129, MELD 3.0= 14. July labs total bilirubin 5.4, AST 157, ALT 66 alk phos
166. Currently labs total bilirubin 11.4, AST 291, ALT 90, alk phos 177. He does have a lactic acid of 2.3. Madrey discriminant function of 32.1 this would rule him in for prednisolone therapy however will check UA and blood cultures first as
well as chest x-ray before initiating prednisolone. Ultrasound the abdomen has already been obtained without any significant ascites. TIPS is patent. Current MELD 3.0 =21 tox screen is also pending. Acetaminophen level is less than 10.
Impression:
Elevated LFTs
--> Likely ETOH hepatitis
--> DF 32.1, today
Decompensated ETOH cirrhosis with ascites/varices s/p TIPS (11/2023)
ETOH abuse, with relapse--> current ETOH level 484
Ammonia 34, without asterixis
Elevated Lactic acid
Plan:
-Check UA/Cx, Blood cultures, CXR. No ascites to tap on US
-After above will likely start Prednisolone for ETOH hepatitis
-Will need ETOH withdrawal prophylaxis
-Thiamine/Folate will need to be on board
-Trend LFT, CBC, BMP, PT/INR
-Watch for signs of decompensation
-Follows with Dr. Renee as outpatient ([facility])
-Further recommendations to be forthcoming.
-
-
Thank you for consultation and allowing me to participate in the patient's care. Please call the security operations engineer GI physician during the after hours with any questions or concerns.
--- NOTE | 2024-11-13 17:05 | EDRN ---
Melyssa Moyer SENIOR PRODUCT INTEGRITY ENGINEER in to see pt for hospitalist group at this time.
--- NOTE | 2024-11-13 17:40 | W.PN.UPDATE ---
Update Note
Progress Note Update
I have independently examined a patient and agree with H&P written on the same date by GLASS EMBOSSER. In addition:
54yo M with PMHx of alcohol abuse, liver cirrhosis s/p TIPS in Aug 2023 came with 3 days of worsening mentation and loosing ballance. He said that he is feeling unstable on his legs. He still was drinking 1 pint of vodka daily. Found jaundice and
elevated ammonia. No abdominal pain on assessment.
A/P:
#Acute alcoholic hepatitis with liver cirrhosis and TIPS
#Acute toxic metabolic encephalopathy
Lactulose TID titrate to 2 BM per day
follow MELD labs
Doris discriminant function on admisison - 39 - Start Prednisolone
GI consult
US RUQ with contracted gall bladder, no signs of cholecystitis, CBD 5mm without signs of choledocholithiasis
No RUQ pain
#Alcohol abuse with impending withdrawal
Phenobarb taper
MSAS and Ativan
Thiamine/Folate
check B12, folate level
#Leukopenia
#thrombocytopenia
2/2 alcohol abuse
follow CBC
SCDs for ppx
DNR/DNI - patient AAOx3, able to justify his choice and persistent in it. Confirmed after prolonged and detailed conversation
We have spent at least 78min reviewing chart, test results, communication with consultants and providing direct patient care
--- NOTE | 2024-11-13 17:43 | EDRN ---
Pt was asked at this time about his drinking and now admits to a pint of hard liquor a day. Pt though does state his last drink was Wednesday night but pt reeks of recent alcohol consumption.
[2024-11-13 18:29] LABS: Direct Bilirubin 5.7 mg/dl (0.0-0.4)
--- NOTE | 2024-11-13 19:45 | PTCARENOTE ---
Patient arrived from the ED via stretcher. Patient AAOx3, VSS. Patient ambulated into the room with assistance by staff. Unsteady on feet. Patient oriented to the room, call morfin is in reach. Bed alarm plugged in.
[2024-11-13 20:43] LABS: GGTP 683 U/L (15-73); Magnesium 1.8 mg/dl (1.6-2.3); Phosphorus 3.6 mg/dl (2.5-4.5)
[2024-11-13 20:59] LABS: APTT 43.4 Sec (23.4-35.0); INR 1.72; PT 20.4 Sec (11.4-14.6)
[2024-11-13] MEDS: DUPHALAC/CHRONULAC 20 GRAMS PO (21:07)
[2024-11-13] MEDS: PHENOBARBITAL 97.5 MG IV (21:07)
[2024-11-13] MEDS: THIAMINE INJECTION 200 MG IV (21:08)
[2024-11-14] VITALS (7 sets, daily range): BP systolic 117–140; BP diastolic 66–73; PULSE 79; O2SAT 98; BMI 23.4
[2024-11-14 03:43] LABS: Urine Albumin 2+ (Neg - Trace); Urine Bilirubin 3+ (Negative); Urine Character Clear (Clear); Urine Color Amber; Urine Glucose Negative (Negative); Urine Ketone 3+ (Negative); Urine Leukocyte 1+ (Negative); Urine Nitrite Positive (Negative); Urine Occult Blood 2+ (Negative); Urine Specific Gravity 1.015 (<1.030); Urine Urobilinogen 4+ (Neg - 1+); Urine pH 6.5 (5.0-9.0)
[2024-11-14 04:32] LABS: Amphetamines Negative (Negative); Barbiturates Negative (Negative); Benzodiazepines Negative (Negative); Buprenorphine Negative (Negative); Cocaine Negative (Negative); Marijuana Negative (Negative); Methadone Negative (Negative); Methamphetamines Negative (Negative); Opiates Negative (Negative); Phencyclidine Negative (Negative); Tricyclic Antidepressants Negative (Negative)
[2024-11-14 05:05] LABS: Urine Mucus Many
[2024-11-14 05:39] LABS: Urine Amorphous Seen
[2024-11-14 05:41] LABS: Urine Bacteria Many (Negative)
[2024-11-14 05:43] LABS: Urine Squamous Cell >30 /LPF (Few); Urine Urothelial Cell >30 /LPF (FEW)
--- NOTE | 2024-11-14 06:45 | W.PN.GI.CBS2 ---
Today's Communication / Plan
-
Please see assessment and plan for details.
Assessment / Plan
-
1. 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
possibly of hepatic encephalopathy. He is now overall improving. Elevated LFTs likely some component of acute alcohol hepatitis as well. He states he does follow-up with Dr. Renee, last seen in August. His exam is improved, no obvious ascites on
ultrasound. At this point will await morning labs, if improving then possibly able to DC later today with continued supportive care, diuretics and lactulose along with alcohol abstinence which we again stressed. He will follow-up with Dr. Renee on
discharge.
Subjective
Subjective
Date of Service: November 14, 2024
Patient feeling okay overnight, no events, feeling that mental status is improving, almost back to normal. No abdominal pain, nausea or vomiting.
Objective
Data Reviewed
Laboratory Data:
Laboratory Results
PT 20.4 Sec (11.4-14.6) H 11/13/24 20:37
INR 1.72 11/13/24 20:37
APTT 43.4 Sec (23.4-35.0) H 11/13/24 20:37
Phosphorus Cancelled 11/13/24 19:23
Magnesium Cancelled 11/13/24 19:23
Total Bilirubin 11.4 mg/dl (0.2-1.3) H 11/13/24 12:14
AST 291 U/L (17-59) H 11/13/24 12:14
ALT 90 U/L (0-50) H 11/13/24 12:14
Alkaline Phosphatase 177 U/L (38-126) H 11/13/24 12:14
Vital Signs and I&O:
Vital Signs
Temp Pulse Resp BP Pulse Ox
97.8 F 77 20 124/69 96
11/14/24 02:59 11/14/24 02:59 11/14/24 02:59 11/14/24 02:59 11/14/24 02:59
Physical Exam
Physical Exam
General: NAD
Abdomen: normal bowel sounds, soft, no tenderness, no masses or bruits, no appreciable ascites
[2024-11-14] MEDS: ALDACTONE 100 MG PO (08:24)
[2024-11-14] MEDS: FOLVITE 1 MG PO (08:24)
[2024-11-14] MEDS: LASIX 40 MG PO (08:24)
[2024-11-14] MEDS: THIAMINE INJECTION 200 MG IV ×2 (08:25→20:16)
[2024-11-14] MEDS: PHENOBARBITAL 97.5 MG IV ×3 (08:25→20:16)
[2024-11-14] MEDS: DUPHALAC/CHRONULAC 20 GRAMS PO ×3 (08:25→20:17)
[2024-11-14 08:35] LABS: PT 20.2 Sec (11.4-14.6)
[2024-11-14 08:37] LABS: Hemoglobin 9.6 g/dL (13.0-18.0); Mean Corp Hgb Conc. 36.9 g/dL (33.0-37.0); Mean Corpuscular Hgb 34.3 pg (27.0-31.0); Mean Corpuscular Volume 92.9 fL (80.0-94.0); Mean Platelet Volume 10.3 fL (7.4-10.4); Platelet Count 27 10^3/uL (130-400); Red Cell Dist. Width 15.1 % (11.5-14.5); White Blood Cell Count 2.5 10^3/uL (4.8-10.8)
[2024-11-14 08:40] LABS: Ammonia 34 umol/L (9-30)
[2024-11-14 09:21] LABS: ALT (SGPT) 78 U/L (0-50); AST (SGOT) 246 U/L (17-59); Albumin 3.3 g/dl (3.5-5.0); Alkaline Phosphatase 132 U/L (38-126); Blood Urea Nitrogen 12 mg/dl (9-20); Calcium 7.9 mg/dl (8.4-10.2); Carbon Dioxide 22 mmol/L (22-30); Chloride 103 mmol/L (98-107); Direct Bilirubin 6.2 mg/dl (0.0-0.4); Estimated Creatinine Clearance > 125 ml/min; Glucose 81 mg/dl (70-99); Potassium 3.5 mmol/L (3.5-5.1); Sodium 137 mmol/L (135-145); Total Bilirubin 11.8 mg/dl (0.2-1.3); Total Protein 6.3 g/dl (6.3-8.2); eGFR > 60.00
[2024-11-14 10:12] LABS: Folate 6.5 ng/ml (2.76-20); Vitamin B12 > 1000 pg/ml (239-931)
--- NOTE | 2024-11-14 10:34 | W.PN.HOSP.TC ---
Today's Communication/Plan
-
watch for withdrawal, cont phenobarb taper
follow AM labs
Assessment / Plan
Assessment / Plan
54yo M with PMHx of alcohol abuse, liver cirrhosis s/p TIPS in Aug 2023 came with 3 days of worsening mentation and loosing ballance. He said that he is feeling unstable on his legs. He still was drinking 1 pint of vodka daily. Found jaundice and
elevated ammonia. No abdominal pain on assessment.
A/P:
#Acute alcoholic hepatitis with liver cirrhosis and TIPS
#Acute toxic metabolic encephalopathy
Lactulose TID titrate to 2 BM per day
follow MELD labs
Blessings discriminant function on admisison - 39 - GI recommended to hold off Prednisolone until infection w/u result or if LFT with INR worsening
GI consult
US RUQ with contracted gall bladder, no signs of cholecystitis, CBD 5mm without signs of choledocholithiasis
No RUQ pain
#Alcohol abuse with impending withdrawal
Phenobarb taper
MSAS and Ativan
Thiamine/Folate
B12, folate level WNL
#Leukopenia
#thrombocytopenia
2/2 alcohol abuse
follow CBC
SCDs for ppx
DNR/DNI - patient AAOx3, able to justify his choice and persistent in it. Confirmed after prolonged and detailed conversation
We have spent at least 38min reviewing chart, test results, communication with consultants and providing direct patient care
Anticipated Discharge: > 48 hours
Subjective/Interval History
-
Date of Service: November 14, 2024
Objective Data
-
Labs:
Laboratory Results
11/14/24
08:15
WBC 2.5 L
Hgb 9.6 L
Hct 26.0 L
Plt Count 27 L* D
PT 20.2 H
INR 1.70
Sodium 137
Potassium 3.5
Chloride 103
Carbon Dioxide 22
BUN 12
Creatinine 0.5 L
Glucose 81
Calcium 7.9 L
Total Bilirubin 11.8 H
AST 246 H
ALT 78 H
Alkaline Phosphatase 132 H
Vital Signs:
Vital Signs
Temp Pulse Resp BP Pulse Ox
97.9 F 74 18 127/73 98
11/14/24 07:52 11/14/24 08:24 11/14/24 07:52 11/14/24 08:24 11/14/24 07:52
I&O
11/13/24 11/14/24 11/15/24
06:59 06:59 06:59
Intake Total 960 / 960
Output Total 450 / 450
Balance 510 / 510
Review of Systems
-
History Source: Patient
All other systems: Reviewed and negative
Physical Exam
-
General: No Apparent Distress
HEENT: Normocephalic
GI: Soft, Nontender and Nondistended
Musculoskeletal: No Clubbing, No Cyanosis and No Edema
Skin: Jaundice
Neuro: Awake, Alert, Oriented, AO x 3 and Tremors
Psych: Calm
--- NOTE | 2024-11-14 11:48 | CM ---
Patient is seen bedside, initial assessment completed. Patient is a 54 y/o M with h/o alcohol cirrhosis s/p BRINA kirby aug 2023 presented with 3-4 days of worsening confusion for past one month.
Patient reports that he lives w/ his significant other in a single story home-1 step to enter. Patient is independent w/ ambulating and ADLs, no DME identified. Patient denies SNF/VN/PT hx. Patient engaged in OP therapy last year. Patient denies any
current OP or home services at this time.
Address, points of contact and insurance verified
PCP: Not assigned. Patient shares he goes to [facility] for primary care but isn't assigned to a PCP
Pharmacy: [facility]
CM was consulted for advanced directive and substance abuse counseling. Patient agreeable to advanced directive paperwork, copy provided. CM discussed any needs for D&A resources/counseling. Patient shared he prev was at [facility] for individual
and group counseling and will explore this again at d/c. Patient did not share any additional needs or support at this time
Plan: Home; no needs
[2024-11-14] MEDS: ATIVAN 1 MG PO (16:25)
[2024-11-15 03:34] VITALS: BP 143/80
[2024-11-15] MEDS: ATIVAN 1 MG PO ×2 (03:37→16:15)
--- NOTE | 2024-11-15 04:28 | DOWNTIME ---
There was a [employer] Client Ends Breakage Clerk Downtime on 11/15/2024 from 0100 to 11/16/2023 at 0420 . Downtime documentation of patient's care, including medication administrations, has been reconciled in the electronic record per guidelines. Refer to the
patient's paper chart under the miscellaneous tab to see printed paper medication records and downtime forms.
[2024-11-15 06:00] VITALS: BMI 23.1
--- NOTE | 2024-11-15 06:43 | W.PN.GI.CBS2 ---
Today's Communication / Plan
-
Please see assessment and plan for details.
Assessment / Plan
-
1. 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
possibly of hepatic encephalopathy. He is now overall clinically much improved. Elevated LFTs likely some component of acute alcohol hepatitis as well. He states he does follow-up with Dr. Renee, last seen in August. His exam is improved, no
obvious ascites on ultrasound. At this point will await morning labs, if not starting to improve then may consider a course of prednisolone though difficult to differentiate sometimes from severe acute alcoholic hepatitis and decompensated
cirrhosis. He will follow-up with Dr. Renee on discharge.
Subjective
Subjective
Date of Service: November 15, 2024
Patient overall feeling much better, mentation is much improved, no abdominal pain, nausea or vomiting, fever or chills. Was ambulated without difficulty yesterday.
Objective
Data Reviewed
Laboratory Data:
Laboratory Results
PT 20.2 Sec (11.4-14.6) H 11/14/24 08:15
INR 1.70 11/14/24 08:15
APTT 43.4 Sec (23.4-35.0) H 11/13/24 20:37
Phosphorus Cancelled 11/13/24 19:23
Magnesium Cancelled 11/13/24 19:23
Total Bilirubin 11.8 mg/dl (0.2-1.3) H 11/14/24 08:15
AST 246 U/L (17-59) H 11/14/24 08:15
ALT 78 U/L (0-50) H 11/14/24 08:15
Alkaline Phosphatase 132 U/L (38-126) H 11/14/24 08:15
Vital Signs and I&O:
Vital Signs
Temp Pulse Resp BP Pulse Ox
98.6 F 72 19 143/80 98
11/15/24 03:34 11/15/24 03:34 11/15/24 03:34 11/15/24 03:34 11/15/24 03:34
I&O
11/13/24 11/14/24 11/15/24
06:59 06:59 06:59
Intake Total 960 / 960 1080 / 1080
Output Total 450 / 450
Balance 510 / 510 1080 / 1080
Physical Exam
Physical Exam
General: NAD, alert and oriented x 3
Abdomen: normal bowel sounds, soft, no tenderness, no masses or bruits, no ascites
[2024-11-15 07:21] LABS: Hematocrit 25.8 % (39.0-52.0); Hemoglobin 9.5 g/dL (13.0-18.0); Mean Corp Hgb Conc. 36.8 g/dL (33.0-37.0); Mean Corpuscular Hgb 33.3 pg (27.0-31.0); Mean Corpuscular Volume 90.5 fL (80.0-94.0); Mean Platelet Volume 11.5 fL (7.4-10.4); Platelet Count 19 10^3/uL (130-400); Red Blood Cell Count 2.85 10^6/uL (4.70-6.10); Red Cell Dist. Width 15.2 % (11.5-14.5)
[2024-11-15 07:24] LABS: INR 1.75; PT 20.7 Sec (11.4-14.6)
[2024-11-15 07:35] VITALS: BP 135/74
[2024-11-15 07:47] LABS: ALT (SGPT) 79 U/L (0-50); AST (SGOT) 246 U/L (17-59); Albumin 3.1 g/dl (3.5-5.0); Alkaline Phosphatase 155 U/L (38-126); Blood Urea Nitrogen 10 mg/dl (9-20); Calcium 8.9 mg/dl (8.4-10.2); Carbon Dioxide 27 mmol/L (22-30); Chloride 99 mmol/L (98-107); Direct Bilirubin 5.7 mg/dl (0.0-0.4); Estimated Creatinine Clearance > 125 ml/min; Glucose 130 mg/dl (70-99); Potassium 3.2 mmol/L (3.5-5.1); Sodium 132 mmol/L (135-145); Total Bilirubin 10.5 mg/dl (0.2-1.3); Total Protein 6.3 g/dl (6.3-8.2); eGFR > 60.00
--- NOTE | 2024-11-15 08:08 | W.PN.UPDATE ---
Update Note
Progress Note Update
Labs noted, bilirubin decreased, MELDNa 25, DF 38.6. Given improved bilirubin will hold on prednisolone discussion for now, will continue to trend labs, if MELD worsening will discuss with Dr. Renee. Severe thrombocytopenia secondary to alcohol
effects, no signs of gross bleeding now.
[2024-11-15] MEDS: FOLVITE 1 MG PO (08:29)
[2024-11-15] MEDS: DUPHALAC/CHRONULAC 20 GRAMS PO ×2 (08:29→16:15)
[2024-11-15] MEDS: LASIX 40 MG PO (08:29)
[2024-11-15] MEDS: ALDACTONE 100 MG PO (08:30)
[2024-11-15 08:44] LABS: % Basophils 0.5 % (0-2); % Eosinophils 1.5 % (0-6); % Immature Granulocytes 0.5 % (0-0.5); % Lymphocytes 15.2 % (20.5-51.1); % Monocytes 11.7 % (1.7-9.3); % Neutrophils 70.6 % (42.2-75.2); Absolute Lymphocytes 0.3 10^3/uL (1.2-3.4); Absolute Monocytes 0.2 10^3/uL (0.1-0.6); Absolute Neutrophils 1.4 10^3/uL (1.4-6.5); Nucleated Red Blood Cells % 0 % (-)
[2024-11-15] MEDS: PHENOBARBITAL 97.5 MG IV ×2 (09:32→16:11)
[2024-11-15] MEDS: THIAMINE INJECTION 200 MG IV ×2 (09:33→20:56)
--- NOTE | 2024-11-15 09:37 | PTCARENOTE ---
Gave pt Phenobarbital and Thiamine dose for the primary TOOL TECHNICIAN, no issues and pt tolerated without incident.
--- NOTE | 2024-11-15 10:17 | PN.CDI ---
CDI
- -
CDI:
Physician Documentation Request
Admit Date: 11/13/24 17:20
Dear Doctor Diamond,
Please review the following and provide your response in the progress notes.
Clinical Indicators:
Pt admitted with Acute alcoholic hepatitis /Jaundice /TME /hepatic encephalopathy
Progress note 11/14, ' Leukopeniathrombocytopenia2/2 alcohol abuse follow CBC
Trended Blood counts below
11/13/24 11/14/24 11/15/24
12:14 08:15 06:59
WBC 4.4 L 2.5 L 2.0 L*
Hgb 12.0 L 9.6 L 9.5 L
Hct 33.8 L 26.0 L 25.8 L
Plt Count 45 L 27 L* D 19 L* D
Based on the above, could you clarify, in your progress note, which of the following is the most likely type of anemia you are evaluating, monitoring and/or treating?
Pancytopenia
Thrombocytopenia only
Other ( please specify)
Use of terms such as suspected, likely, concern for, or probable (associated with a specific diagnosis that is being evaluated, monitored, or treated as if it exists) are acceptable and can be coded in the inpatient setting, when documented at the
time of discharge.
Thank you,
Dasha Ramirez RN
CDI Specialist
[place] text
Please use your independent medical judgment in providing your response.
[2024-11-15 11:10] VITALS: BP 114/68
--- NOTE | 2024-11-15 11:25 | W.PN.HOSP.TC ---
Today's Communication/Plan
-
mild tremor
no other symptoms
cont withdrawal mgmt and follow CBC
Assessment / Plan
Assessment / Plan
54yo M with PMHx of alcohol abuse, liver cirrhosis s/p TIPS in Aug 2023 came with 3 days of worsening mentation and loosing ballance. He said that he is feeling unstable on his legs. He still was drinking 1 pint of vodka daily. Found jaundice and
elevated ammonia. No abdominal pain on assessment.
A/P:
#Acute alcoholic hepatitis with liver cirrhosis and TIPS
#Acute toxic metabolic encephalopathy
Lactulose TID titrate to 2 BM per day
follow MELD labs
Blessings discriminant function on admisison - 39 - GI recommended to hold off Prednisolone until infection w/u result or if LFT with INR worsening
GI consult
US RUQ with contracted gall bladder, no signs of cholecystitis, CBD 5mm without signs of choledocholithiasis
No RUQ pain
#Alcohol abuse with impending withdrawal
Phenobarb taper
MSAS and Ativan
Thiamine/Folate
B12, folate level WNL
#Hypokalemia
replete and follow
#Pancytopenia
2/2 alcohol abuse
follow CBC
If continues to worsen - Hematology consult
SCDs for ppx
DNR/DNI - patient AAOx3, able to justify his choice and persistent in it. Confirmed after prolonged and detailed conversation
We have spent at least 38min reviewing chart, test results, communication with consultants and providing direct patient care
Anticipated Discharge: 24 - 48 hours
Subjective/Interval History
-
Date of Service: November 15, 2024
Objective Data
-
Labs:
Laboratory Results
11/15/24 11/15/24
06:58 06:59
WBC 2.0 L*
Hgb 9.5 L
Hct 25.8 L
Plt Count 19 L* D
PT 20.7 H
INR 1.75
Sodium 132 L
Potassium 3.2 L
Chloride 99
Carbon Dioxide 27
BUN 10
Creatinine 0.5 L
Glucose 130 H
Calcium 8.9
Total Bilirubin 10.5 H
AST 246 H
ALT 79 H
Alkaline Phosphatase 155 H
Vital Signs:
Vital Signs
Temp Pulse Resp BP Pulse Ox
98.8 F 80 18 114/68 97
11/15/24 11:10 11/15/24 11:10 11/15/24 11:10 11/15/24 11:10 11/15/24 11:10
I&O
11/14/24 11/15/24 11/16/24
06:59 06:59 06:59
Intake Total 960 / 960 1080 / 1080
Output Total 450 / 450
Balance 510 / 510 1080 / 1080
Review of Systems
-
History Source: Patient
All other systems: Reviewed and negative
Physical Exam
-
General: No Apparent Distress
HEENT: Normocephalic
Cardiac: Regular Rhythm
GI: Soft, Nontender and Nondistended
Musculoskeletal: No Clubbing, No Cyanosis and No Edema
Neuro: Awake, Alert, Oriented and AO x 3
Psych: Calm
[2024-11-15] MEDS: KCL 40 MEQ PO (12:29)
[2024-11-15 15:08] VITALS: BP 118/69
--- NOTE | 2024-11-15 16:14 | PTCARENOTE ---
Pt was given his afternoon Phenobarbital. Pt tolerated without incident.
[2024-11-15 19:25] VITALS: BP 141/70
[2024-11-15] MEDS: LUMINAL 64.8 MG PO (20:57)
[2024-11-15] MEDS: DUPHALAC/CHRONULAC PO (22:26)
[2024-11-15 23:25] VITALS: BP 126/80
[2024-11-16] VITALS (7 sets, daily range): BP systolic 123–143; BP diastolic 72–82; PULSE 77; BMI 22.5
--- NOTE | 2024-11-16 06:33 | W.PN.GI.CBS2 ---
Today's Communication / Plan
-
Please see assessment and plan for details.
Assessment / Plan
-
1. 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
possibly of hepatic encephalopathy. He is now overall clinically much improved. Elevated LFTs likely some component of acute alcohol hepatitis as well. He states he does follow-up with Dr. Renee, last seen in August. His exam is improved, no
obvious ascites on ultrasound. At this point will await morning labs, bilirubin was slightly lower yesterday, will continue to trend meld/DF. If worsening will discuss with Dr. Renee. Severe thrombocytopenia secondary to acute alcohol bone marrow
effects, no signs of bleeding now.
Subjective
Subjective
Date of Service: November 16, 2024
Patient feeling okay, no abdominal pain, nausea or vomiting, no confusion. No fevers or chills overnight.
Objective
Data Reviewed
Laboratory Data:
Laboratory Results
PT 20.7 Sec (11.4-14.6) H 11/15/24 06:58
INR 1.75 11/15/24 06:58
APTT 43.4 Sec (23.4-35.0) H 11/13/24 20:37
Phosphorus Cancelled 11/13/24 19:23
Magnesium Cancelled 11/13/24 19:23
Total Bilirubin 10.5 mg/dl (0.2-1.3) H 11/15/24 06:59
AST 246 U/L (17-59) H 11/15/24 06:59
ALT 79 U/L (0-50) H 11/15/24 06:59
Alkaline Phosphatase 155 U/L (38-126) H 11/15/24 06:59
Vital Signs and I&O:
Vital Signs
Temp Pulse Resp BP Pulse Ox
98.2 F 77 18 129/74 96
11/16/24 03:08 11/16/24 03:08 11/16/24 03:08 11/16/24 03:08 11/16/24 03:08
I&O
11/14/24 11/15/24 11/16/24
06:59 06:59 06:59
Intake Total 960 / 960 1080 / 1080 360 / 360
Output Total 450 / 450
Balance 510 / 510 1080 / 1080 360 / 360
Physical Exam
Physical Exam
General: NAD, jaundice
Abdomen: normal bowel sounds, soft, no tenderness, no masses or bruits, no ascites
[2024-11-16 08:36] LABS: INR 1.81; PT 21.5 Sec (11.4-14.6)
[2024-11-16 09:02] LABS: ALT (SGPT) 84 U/L (0-50); AST (SGOT) 230 U/L (17-59); Albumin 3.5 g/dl (3.5-5.0); Alkaline Phosphatase 137 U/L (38-126); Blood Urea Nitrogen 10 mg/dl (9-20); Calcium 8.9 mg/dl (8.4-10.2); Carbon Dioxide 26 mmol/L (22-30); Chloride 95 mmol/L (98-107); Estimated Creatinine Clearance > 125 ml/min; Glucose 129 mg/dl (70-99); Magnesium 1.4 mg/dl (1.6-2.3); Potassium 3.1 mmol/L (3.5-5.1); Sodium 130 mmol/L (135-145); eGFR > 60.00
[2024-11-16] MEDS: ALDACTONE 100 MG PO (09:23)
[2024-11-16] MEDS: LASIX 40 MG PO (09:24)
[2024-11-16 09:25] LABS: % Basophils 1.2 % (0-2); % Eosinophils 3.3 % (0-6); % Immature Granulocytes 0.6 % (0-0.5); % Lymphocytes 11.5 % (20.5-51.1); % Monocytes 11.5 % (1.7-9.3); % Neutrophils 71.9 % (42.2-75.2); Absolute Eosinophils 0.1 10^3/uL (0-0.7); Absolute Lymphocytes 0.4 10^3/uL (1.2-3.4); Absolute Monocytes 0.4 10^3/uL (0.1-0.6); Absolute Neutrophils 2.4 10^3/uL (1.4-6.5); Hematocrit 28.9 % (39.0-52.0); Hemoglobin 10.8 g/dL (13.0-18.0); Mean Corp Hgb Conc. 37.4 g/dL (33.0-37.0); Mean Corpuscular Hgb 34.2 pg (27.0-31.0); Mean Corpuscular Volume 91.5 fL (80.0-94.0); Mean Platelet Volume 11.6 fL (7.4-10.4); Nucleated Red Blood Cells % 0 % (-); Platelet Count 35 10^3/uL (130-400); Red Blood Cell Count 3.16 10^6/uL (4.70-6.10); Red Cell Dist. Width 15.7 % (11.5-14.5); White Blood Cell Count 3.3 10^3/uL (4.8-10.8)
[2024-11-16] MEDS: LUMINAL 64.8 MG PO ×3 (09:25→21:39)
[2024-11-16] MEDS: THIAMINE INJECTION 200 MG IV (09:26)
[2024-11-16] MEDS: DUPHALAC/CHRONULAC 20 GRAMS PO ×3 (09:26→21:39)
[2024-11-16] MEDS: FOLVITE 1 MG PO (09:26)
[2024-11-16] MEDS: KCL 40 MEQ PO ×2 (09:52→20:44)
[2024-11-16] MEDS: MAGNESIUM SULFATE 50 IV (09:57)
--- NOTE | 2024-11-16 11:17 | W.PN.HOSP.TC ---
Today's Communication/Plan
-
follow labs in AM
replete Mg, K
Provide vit K
Assessment / Plan
Assessment / Plan
54yo M with PMHx of alcohol abuse, liver cirrhosis s/p TIPS in Aug 2023 came with 3 days of worsening mentation and loosing balance. He said that he is feeling unstable on his legs. He still was drinking 1 pint of vodka daily. Found jaundice and
elevated ammonia. No abdominal pain on assessment. Pancytopenia improving. LFT variable so still under monitoring
A/P:
#Acute alcoholic hepatitis with liver cirrhosis and TIPS
#Acute toxic metabolic encephalopathy
Lactulose TID titrate to 2 BM per day
follow MELD labs
Harsha discriminant function on admission - 39 - GI recommended to hold off Prednisolone until infection w/u result or if LFT with INR worsening
GI consult
US RUQ with contracted gall bladder, no signs of cholecystitis, CBD 5mm without signs of choledocholithiasis
Vit K since with alcoholism usually depleted
No RUQ pain
#Alcohol abuse with impending withdrawal
Phenobarb taper
MSAS and Ativan
Thiamine/Folate
B12, folate level WNL
#Hypokalemia
#Hypomagnesemia
replete and follow
#Pancytopenia
2/2 alcohol abuse
follow CBC
If continues to worsen - Hematology consult
SCDs for ppx
DNR/DNI - patient AAOx3, able to justify his choice and persistent in it. Confirmed after prolonged and detailed conversation
We have spent at least 55min reviewing chart, test results, communication with consultants and providing direct patient care
Anticipated Discharge: 24 - 48 hours
Subjective/Interval History
-
Date of Service: November 16, 2024
Objective Data
-
Labs:
Laboratory Results
11/16/24
07:51
WBC 3.3 L
Hgb 10.8 L
Hct 28.9 L
Plt Count 35 L D
PT 21.5 H
INR 1.81
Sodium 130 L
Potassium 3.1 L
Chloride 95 L
Carbon Dioxide 26
BUN 10
Creatinine 0.5 L
Glucose 129 H
Calcium 8.9
Total Bilirubin 13.0 H
AST 230 H
ALT 84 H
Alkaline Phosphatase 137 H
Vital Signs:
Vital Signs
Temp Pulse Resp BP Pulse Ox
98.2 F 70 18 126/72 98
11/16/24 10:45 11/16/24 10:45 11/16/24 10:45 11/16/24 10:45 11/16/24 10:45
I&O
11/15/24 11/16/24 11/17/24
06:59 06:59 06:59
Intake Total 1080 / 1080 480 / 480
Balance 1080 / 1080 480 / 480
[2024-11-16] MEDS: MEPHYTON 5 MG PO (11:50)
--- NOTE | 2024-11-16 12:59 | CM ---
Chart reviewed for d/c planning. Care ongoing at this time.
Plan is for patient to d/c home w/ no needs
--- NOTE | 2024-11-16 14:27 | W.PN.UPDATE ---
Update Note
Progress Note Update
I discussed patient and his lab work with hepatology at [facility]. There mean transplant MELD is 30-35, will hold on transfer evaluation for now, though did agree with trial of prednisolone with negative infectious workup. Will start prednisolone
40 mg daily today.
[2024-11-16] MEDS: PRELONE 40 MG PO (16:23)
[2024-11-16] MEDS: VITAMIN B1 100 MG PO (20:44)
[2024-11-17 03:40] VITALS: BP 130/78
[2024-11-17] MEDS: ATIVAN 1 MG PO (04:25)
[2024-11-17 06:00] VITALS: BMI 22.7
[2024-11-17 07:00] VITALS: BP 134/76
[2024-11-17 07:23] LABS: PT 22.3 Sec (11.4-14.6)
--- NOTE | 2024-11-17 07:54 | W.PN.UPDATE ---
Update Note
Progress Note Update
Patient requested to leave the hospital. He said that he has things to do at home. After detailed conversation with the patient, its noted that he is not persistent in his thoughts. Agreeable to stay and next moment says that he has to leave,
declining telemetry and IV line without clear justification, confused and slow in responses. Obviously lacks capacity to make informed medical decisions at this point.
-Ativan
-No capacity for AMA
-psych consult
[2024-11-17] MEDS: ALDACTONE 100 MG PO (08:09)
[2024-11-17] MEDS: FOLVITE 1 MG PO (08:09)
[2024-11-17] MEDS: LASIX 40 MG PO (08:09)
[2024-11-17] MEDS: PRELONE 40 MG PO (08:10)
[2024-11-17] MEDS: VITAMIN B1 100 MG PO ×2 (08:10→20:16)
[2024-11-17] MEDS: LUMINAL 64.8 MG PO ×2 (08:10→17:39)
[2024-11-17] MEDS: DUPHALAC/CHRONULAC 20 GRAMS PO ×2 (08:10→17:39)
[2024-11-17 08:12] LABS: Hematocrit 31.3 % (39.0-52.0); Hemoglobin 11.6 g/dL (13.0-18.0); Mean Corp Hgb Conc. 37.1 g/dL (33.0-37.0); Mean Corpuscular Hgb 34.5 pg (27.0-31.0); Mean Corpuscular Volume 93.2 fL (80.0-94.0); Mean Platelet Volume 11.2 fL (7.4-10.4); Platelet Count 61 10^3/uL (130-400); Red Blood Cell Count 3.36 10^6/uL (4.70-6.10); Red Cell Dist. Width 16.3 % (11.5-14.5); White Blood Cell Count 6.6 10^3/uL (4.8-10.8)
[2024-11-17] MEDS: ATIVAN 2 MG IM (08:19)
[2024-11-17 08:26] LABS: ALT (SGPT) 80 U/L (0-50); AST (SGOT) 187 U/L (17-59); Albumin 3.9 g/dl (3.5-5.0); Alkaline Phosphatase 156 U/L (38-126); Blood Urea Nitrogen 11 mg/dl (9-20); Calcium 8.9 mg/dl (8.4-10.2); Carbon Dioxide 21 mmol/L (22-30); Chloride 96 mmol/L (98-107); Estimated Creatinine Clearance > 125 ml/min; Glucose 146 mg/dl (70-99); Magnesium 1.7 mg/dl (1.6-2.3); Potassium 4.2 mmol/L (3.5-5.1); Sodium 129 mmol/L (135-145); Total Bilirubin 14.6 mg/dl (0.2-1.3); Total Protein 7.4 g/dl (6.3-8.2); eGFR > 60.00
--- NOTE | 2024-11-17 08:30 | PTCARENOTE ---
Received patient AAOx3 but very forgetful and can be confused at times. Very unsteady gait with frequent attempts to get OOB and wanting to leave the hospital. Patient refusing to have IV and removed property assessment monitor. Patient's mother Mary Carmen called
and made aware of patient's status. Dr Fields made aware and ordered 1x dose IM Ativan 2mg and came to assess patient. Bed alarm on.
--- NOTE | 2024-11-17 09:47 | PN.CDI ---
CDI
- -
CDI:
Physician Documentation Request
Admit Date: 11/13/24 17:20
Dear Doctor Diamond,
Please review the following and provide your response in the progress notes.
Clinical Indicators:
Pt admitted with Acute alcoholic hepatitis /Jaundice /TME /hepatic encephalopathy
Sodium levels are as below
11/15/24 11/16/24 11/17/24
06:59 07:51 06:52
Sodium 132 L 130 L 129 L
Based on the above, could you clarify in the progress notes, the appropriate diagnosis, if significant, that supports the above abnormalities and additional evaluation, monitoring and/or treatment rendered:
Hyponatremia
Abnormal lab value only
Other ( please specify)
Use of terms such as suspected, likely, concern for, or probable (associated with a specific diagnosis that is being evaluated, monitored, or treated as if it exists) are acceptable and can be coded in the inpatient setting, when documented at the
time of discharge.
Thank you,
Dasha Ramirez RN
CDI Specialist
[facility]
Please use your independent medical judgment in providing your response.
--- NOTE | 2024-11-17 10:06 | W.PN.HOSP.TC ---
Today's Communication/Plan
-
cont prednisone
Ativan
Psych consult
Assessment / Plan
Assessment / Plan
54yo M with PMHx of alcohol abuse, liver cirrhosis s/p TIPS in Aug 2023 came with 3 days of worsening mentation and loosing balance. He said that he is feeling unstable on his legs. He still was drinking 1 pint of vodka daily. Found jaundice and
elevated ammonia. No abdominal pain on assessment. Pancytopenia improving. LFT variable so still under monitoring
A/P:
#Acute alcoholic hepatitis with liver cirrhosis and TIPS
#Acute toxic metabolic encephalopathy
Lactulose TID titrate to 2 BM per day
follow MELD labs
Maudeey discriminant function on admission - 39 - GI recommended to hold off Prednisolone until infection w/u result or if LFT with INR worsening
GI consult: started Prednisolone on 11/16/24, Josselin score on 11/23/24
US RUQ with contracted gall bladder, no signs of cholecystitis, CBD 5mm without signs of choledocholithiasis
Vit K given on 11/17/24 since with alcoholism usually depleted
No RUQ pain
#Alcohol abuse with impending withdrawal
Phenobarb taper
MSAS and Ativan
Thiamine/Folate
B12, folate level WNL
Psych consult, since patient potentially lacks capacity for medical decisions
Low threshold for Precedex
#Mild hyponatremia
follow BMP
Urine Osm
#Hypokalemia
#Hypomagnesemia
replete and follow
#Pancytopenia
2/2 alcohol abuse
follow CBC
If continues to worsen - Hematology consult
SCDs for ppx
DNR/DNI - patient AAOx3, able to justify his choice and persistent in it. Confirmed after prolonged and detailed conversation
We have spent at least 55min reviewing chart, test results, communication with consultants, family and providing direct patient care
Anticipated Discharge: > 48 hours
Subjective/Interval History
-
Date of Service: November 17, 2024
Objective Data
-
Labs:
Laboratory Results
11/17/24
06:52
WBC 6.6
Hgb 11.6 L
Hct 31.3 L
Plt Count 61 L D
PT 22.3 H
INR 1.90
Sodium 129 L
Potassium 4.2 D
Chloride 96 L
Carbon Dioxide 21 L
BUN 11
Creatinine 0.5 L
Glucose 146 H
Calcium 8.9
Total Bilirubin 14.6 H
AST 187 H
ALT 80 H
Alkaline Phosphatase 156 H
Vital Signs:
Vital Signs
Temp Pulse Resp BP Pulse Ox
97.6 F 83 13 134/76 97
11/17/24 07:00 11/17/24 07:00 11/17/24 07:00 11/17/24 07:00 11/17/24 07:00
I&O
11/16/24 11/17/24 11/18/24
06:59 06:59 06:59
Intake Total 480 / 480 1560 / 1560
Balance 480 / 480 1560 / 1560
Review of Systems
-
History Source: Patient
All other systems: Reviewed and negative
Physical Exam
-
General: Comfortable
HEENT: Normocephalic and Other (yellow conjunctiva )
Cardiac: Regular Rhythm
GI: Soft, Nontender and Nondistended
Musculoskeletal: No Clubbing, No Cyanosis and No Edema
Skin: Jaundice
Neuro: Awake and Alert
Psych: Confused; Negative Intact Judgement/Insight
[2024-11-17] MEDS: MAGNESIUM OXIDE 500 MG PO ×2 (12:27→20:16)
--- NOTE | 2024-11-17 12:48 | CM ---
Chart reviewed, discussed w/ nurse. Per nurse, patient had attempts to leave hospital, took out IV and is presenting confused. Patient's mother is having concerns w/ patient going home alone as his significant other is away in [place].
Hospitalist is aware of patient's status and ordered psych consult for capacity. Therapy assessed patient is recommending inpatient D&A rehab. This was prev discussed w/ patient who shared he would explore OP therapy at [place].
CM will cont to follow for d/c planning
[2024-11-17 12:57] LABS: Osmolality Urine 330 mOsm/kg (300-900)
--- NOTE | 2024-11-17 13:15 | CON.MD ---
Consultation - Medical
-
patient seen chart reviewed. discussed with nursing. the patient is known to me from prior visits to . he is a 54 year old male w hx of severe alcoholism with significant gi issues involving liver, esophagus etc etc. he comes to w c.o
confusion dec sleep and appetite, jaundice and was admitted for rx of etoh wd and liver failure. he has been threatening to sign out ama and made it to the back steps this am but staff intercepted him. given his severe unsteadiness he would likely
have tumbled down the steps. this consult ordered for capacity to refuse rx and be dc. the patient has made himself a dnr at age 54. i did ask him if he had si and he said 'sometimes' with no plan or intent. he does not hallucinate and there was
nothing to suggest meghan psychosis. he was a poor historian today. he often did not answer questions and there was often a long latency between questions and the ones he did answer. he was swaying back and forth and side to side during this
entire interview. in the past when he was more able to talk to me he has told me he is troubled by anxiety and his sobriety ended four years ago when his nephew . he had been sober eight months. i explained to him why he has to stay in the
hospital right now.....etoh wd unsteadiness serious medical problems and he did agree to stay.
past psych hx patient has been in rehab in the past. when i saw him in 2022 he refused to consider any rehab program or any out patient rx either. the patient does have some hx of rx with antidepressants
but he told dr delcid they did not help him.
past medical hx patient with serious liver disease secondary to etoh. has esoph varices banded in the past portal hypertension /ascites ammonia level elevated anemia tcp hyponatremia mild anemia glucose 146 high lft's bili 14.6 lumbar disc
disease bp 134/73 p 83 afebrile
fh tbd
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
mse lethargic swaying see above paucity of thought and expression mood neutral affect constricted admitted to sometimes having si no intent or plan intelligence average insight judgment poor
dx etoh use d.o severe r/o depression r/o anxiety
plan do not feel patient currently has the capacity to make medical decisions on his own behalf. i would not allow him at this point to sign out ama unless family willing to take full responsibility which i think they will not. would continue with
msas and phenobarb detox. at some point he will likely reconstitute somewhat at least to the point where he can walk without falling. he should be advised to seek rehab but i suspect he will refuse and at that point we may have to let him go. at
this point he cannot even maintain himself upright safely and should remain here for the time being. gabapentin 100 mg tid to start to help with anxiety. he is getting ativan as well as per msas. kidney function is ok to allow for gabapentin psych
to follow
--- NOTE | 2024-11-17 13:41 | W.PN.GI.CBS2 ---
Addendum entered and electronically signed by Diana Licona MD 11/17/24 21:08:
I saw and examined the patient.
The POTTERY DECORATOR or PA's note was reviewed and I agree with the note.
Comment: Patient denies any abdominal pain, nausea or vomiting.Reports having couple of stool today and tolerating regular diet at this time.
He did have brief episodes of confusion and currently on one-to-one.
Continue Aldactone 100 mg and Lasix 40 mg apart from lactulose 20 mg 3 times a day. Titrate to up to 3 bowel movements a day, monitor electrolytes and replete.
Prednisolone started 11/16/2024 for alcoholic hepatitis. Calculated Lille score in 1 week and improving, finish 28-day course.
After discharge, follow-up with Dr. Renee as outpatient.
Will follow in hospital
Original Note:
Today's Communication / Plan
-
Continue prednisolone
follow MELD
Assessment / Plan
-
1. 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
possibly of hepatic encephalopathy. He is now overall clinically much improved. Elevated LFTs likely some component of acute alcohol hepatitis as well. He states he does follow-up with Dr. Renee, last seen in August. His exam is improved, no
obvious ascites on ultrasound. At this point will await morning labs, bilirubin was slightly lower yesterday, will continue to trend meld/DF. If worsening will discuss with Dr. Renee. Severe thrombocytopenia secondary to acute alcohol bone marrow
effects, no signs of bleeding now.
Summary: 54 y/o male with past medical history of alcohol abuse with prior seizure, decompensated cirrhosis with ascites, grade 3 esophageal varices with red williams sign status post banding x 5 (09/2023), status post TIPS 11/2023 (followed at [place]
[facility]), no paracentesis since TIPS, thrombocytopenia, depression, anxiety, hernia repair, has gone through liver transplant eval at [facility] was removed from transplant ready list given low MELD. Follows with [facility]
routinely with last set of labs in July. Immune to hepatitis A. Has gone through hepatitis B vaccine series. Due for routine MRI surveillance. Current medications include Lasix 40 mg, spironolactone 100 mg, thiamine 100 mg and folic acid 1 mg
daily who presents to the emergency room with increasing confusion and jaundice. Asked to evaluate for the same. Patient without any abdominal pain. Does admit to recurrent alcohol use. He states he started back up in July. He states he
stopped drinking on Wednesday however comes in with a positive alcohol level of 484. I was able to review his outside labs in April as well as July. His bilirubin started to rise in July as well as his AST. This corresponds to the time
that he admits to start drinking again. He also stopped obtaining his lab work since that time as well. Labs in April were total bilirubin 3.3, AST 78, ALT 37 alk phos of 129, MELD 3.0= 14. July labs total bilirubin 5.4, AST 157, ALT 66
alk phos 166. Currently labs total bilirubin 11.4, AST 291, ALT 90, alk phos 177. He does have a lactic acid of 2.3. Madrey discriminant function of 32.1 this would rule him in for prednisolone therapy however will check UA and blood cultures
first as well as chest x-ray before initiating prednisolone. Ultrasound the abdomen has already been obtained without any significant ascites. TIPS is patent. Current MELD 3.0 =21 tox screen is also pending. Acetaminophen level is less than 10.
Assessment/Plan:
#Liver cirrhosis secondary to alcohol s/p TIPS
- on lactulose, aldactone
- Started on prednisolone course on 11/16, Discriminant 57.4
- Follows with at [facility] (aware of pt hospitalization)
- MELD 25, no current plants for transfer to [facility].
- Plt count increasing, now at 61, no signs of bleeding
- Total Bili increasing at 14.6, will trend
- Continue steroid therapy, will reasses with Lille score after 7 days if steroid therapy
- Pysch eval done due to patient capacity to make medical decisions, will reassess mental status tomorrow, lactulose med changes if needed
Subjective
Subjective
Date of Service: November 17, 2024
Patient denied any nausea, vomiting, or diarrhea overnight.
Objective
Data Reviewed
Laboratory Data:
Laboratory Results
11/17/24 06:52
11/17/24 06:52
Laboratory Results
PT 22.3 Sec (11.4-14.6) H 11/17/24 06:52
INR 1.90 11/17/24 06:52
APTT 43.4 Sec (23.4-35.0) H 11/13/24 20:37
Phosphorus Cancelled 11/13/24 19:23
Magnesium 1.7 mg/dl (1.6-2.3) 11/17/24 06:52
Total Bilirubin 14.6 mg/dl (0.2-1.3) H 11/17/24 06:52
AST 187 U/L (17-59) H 11/17/24 06:52
ALT 80 U/L (0-50) H 11/17/24 06:52
Alkaline Phosphatase 156 U/L (38-126) H 11/17/24 06:52
Vital Signs and I&O:
Vital Signs
Temp Pulse Resp BP Pulse Ox
97.6 F 83 13 134/76 97
11/17/24 07:00 11/17/24 07:00 11/17/24 07:00 11/17/24 07:00 11/17/24 08:00
I&O
11/16/24 11/17/24 11/18/24
06:59 06:59 06:59
Intake Total 480 / 480 1560 / 1560 240 / 240
Balance 480 / 480 1560 / 1560 240 / 240
Physical Exam
Physical Exam
HEENT: Moist mucous membranes
Cardiology: Normal Sinus Rhythm, S1 and S2
Pulmonary: Clear
GI: Soft, Non Distended and Non Tender
Extremities: No Edema
Neuro: Non Focal
--- NOTE | 2024-11-17 14:00 | PTCARENOTE ---
Present at bedside with Dr Bah. Patient admits to having some suicide ideation at times, no plan. Patient remains on 1:1 for safety. Will continue to monitor closely.
[2024-11-17 15:00] VITALS: BP 107/59
[2024-11-17] MEDS: NEURONTIN 200 MG PO ×2 (17:39→22:57)
[2024-11-17] MEDS: DUPHALAC/CHRONULAC PO (22:13)
[2024-11-17] MEDS: LUMINAL 32.4 MG PO (22:57)
[2024-11-17 23:20] VITALS: BP 125/69
[2024-11-18 06:00] VITALS: BMI 22.1
[2024-11-18 07:00] VITALS: BP 111/70
[2024-11-18 07:24] LABS: INR 1.92; PT 22.1 Sec (11.4-14.6)
[2024-11-18 07:25] LABS: % Basophils 0.7 % (0-2); % Eosinophils 2.4 % (0-6); % Immature Granulocytes 0.9 % (0-0.5); % Monocytes 12.4 % (1.7-9.3); % Neutrophils 68.6 % (42.2-75.2); Absolute Eosinophils 0.1 10^3/uL (0-0.7); Absolute Immature Granulocytes 0.1 10^3/uL (0-0.05); Absolute Lymphocytes 0.9 10^3/uL (1.2-3.4); Absolute Monocytes 0.7 10^3/uL (0.1-0.6); Absolute Neutrophils 3.9 10^3/uL (1.4-6.5); Hematocrit 29.1 % (39.0-52.0); Hemoglobin 10.6 g/dL (13.0-18.0); Mean Corp Hgb Conc. 36.4 g/dL (33.0-37.0); Mean Corpuscular Hgb 34.2 pg (27.0-31.0); Mean Corpuscular Volume 93.9 fL (80.0-94.0); Mean Platelet Volume 10.3 fL (7.4-10.4); Nucleated Red Blood Cells % 0 % (-); Platelet Count 55 10^3/uL (130-400); White Blood Cell Count 5.7 10^3/uL (4.8-10.8)
[2024-11-18 08:03] LABS: ALT (SGPT) 69 U/L (0-50); AST (SGOT) 123 U/L (17-59); Albumin 3.1 g/dl (3.5-5.0); Alkaline Phosphatase 183 U/L (38-126); Blood Urea Nitrogen 15 mg/dl (9-20); Calcium 8.5 mg/dl (8.4-10.2); Carbon Dioxide 27 mmol/L (22-30); Chloride 98 mmol/L (98-107); Estimated Creatinine Clearance > 125 ml/min; Glucose 136 mg/dl (70-99); Potassium 3.3 mmol/L (3.5-5.1); Sodium 130 mmol/L (135-145); Total Bilirubin 10.9 mg/dl (0.2-1.3); Total Protein 6.5 g/dl (6.3-8.2); eGFR > 60.00
[2024-11-18] MEDS: VITAMIN B1 100 MG PO ×2 (09:35→21:17)
[2024-11-18] MEDS: LUMINAL 32.4 MG PO ×3 (09:35→21:17)
[2024-11-18] MEDS: NEURONTIN 200 MG PO ×3 (09:35→21:17)
[2024-11-18] MEDS: DUPHALAC/CHRONULAC 20 GRAMS PO ×3 (09:35→21:17)
[2024-11-18] MEDS: MAGNESIUM OXIDE 500 MG PO ×2 (09:35→21:17)
[2024-11-18] MEDS: ALDACTONE 100 MG PO (09:36)
[2024-11-18] MEDS: FOLVITE 1 MG PO (09:36)
[2024-11-18] MEDS: LASIX 40 MG PO (09:37)
[2024-11-18] MEDS: KCL 40 MEQ PO (09:37)
[2024-11-18] MEDS: PRELONE 40 MG PO (09:40)
--- NOTE | 2024-11-18 10:28 | W.PN.HOSP.TC ---
Today's Communication/Plan
-
Replete potassium
cont Prednisolone
follow labs in AM
Assessment / Plan
Assessment / Plan
54yo M with PMHx of alcohol abuse, liver cirrhosis s/p TIPS in Aug 2023 came with 3 days of worsening mentation and loosing balance. He said that he is feeling unstable on his legs. He still was drinking 1 pint of vodka daily. Found jaundice and
elevated ammonia. No abdominal pain on assessment. Pancytopenia improving. LFT variable so still under monitoring
A/P:
#Acute alcoholic hepatitis with liver cirrhosis and TIPS
#Acute toxic metabolic encephalopathy
Lactulose TID titrate to 2 BM per day
follow MELD labs
Harsha discriminant function on admission - 39 - GI recommended to hold off Prednisolone until infection w/u result or if LFT with INR worsening
GI consult: started Prednisolone on 11/16/24, Josselin score on 11/23/24
US RUQ with contracted gall bladder, no signs of cholecystitis, CBD 5mm without signs of choledocholithiasis
Vit K given on 11/17/24 since with alcoholism usually depleted
No RUQ pain
#Alcohol abuse with impending withdrawal
Phenobarb taper
MSAS and Ativan
Thiamine/Folate
B12, folate level WNL
Psych consult: lacks capacity for medical decisions, cannot leave AMA
Low threshold for Precedex
#Mild hyponatremia
follow BMP
Urine Osm
#Hypokalemia
#Hypomagnesemia
replete and follow
#Pancytopenia
2/2 alcohol abuse
follow CBC
If continues to worsen - Hematology consult
SCDs for ppx
DNR/DNI - patient AAOx3, able to justify his choice and persistent in it. Confirmed after prolonged and detailed conversation
We have spent at least 55min reviewing chart, test results, communication with consultants, family and providing direct patient care
Anticipated Discharge: > 48 hours
Subjective/Interval History
-
Date of Service: November 18, 2024
Objective Data
-
Labs:
Laboratory Results
11/18/24
06:34
WBC 5.7
Hgb 10.6 L
Hct 29.1 L
Plt Count 55 L
PT 22.1 H
INR 1.92
Sodium 130 L
Potassium 3.3 L
Chloride 98
Carbon Dioxide 27
BUN 15
Creatinine 0.5 L
Glucose 136 H
Calcium 8.5
Total Bilirubin 10.9 H
AST 123 H
ALT 69 H
Alkaline Phosphatase 183 H
Vital Signs:
Vital Signs
Temp Pulse Resp BP Pulse Ox
98 F 64 12 111/70 99
11/18/24 07:00 11/18/24 07:00 11/18/24 07:00 11/18/24 07:00 11/18/24 07:00
I&O
11/17/24 11/18/24 11/19/24
06:59 06:59 06:59
Intake Total 1560 / 1560 480 / 480
Output Total 400 / 400
Balance 1560 / 1560 80 / 80
Physical Exam
-
General: No Apparent Distress
HEENT: Normocephalic
GI: Soft, Nontender and Nondistended
Skin: Warm and Jaundice
Neuro: Awake, Alert and Oriented (not to place)
Psych: Calm
[2024-11-18 11:00] VITALS: BP 110/71
--- NOTE | 2024-11-18 12:08 | PTCARENOTE ---
Visitors with patient inquiring if staff has patients phone, as they are unable to locate. Assisted patient and family to search belongs, along with nurses station. No cell phone found. Charge nurse made aware. Will pass along in report.
--- NOTE | 2024-11-18 12:42 | W.PN.GI.CBS2 ---
Today's Communication / Plan
-
Discriminant 57.4 - MELD 25, no current plants for transfer to [facility].
Continue Aldactone 100 mg and Lasix 40 mg apart from lactulose 20 mg 3 times a day. Titrate to up to 3 bowel movements a day, monitor electrolytes and replete.
Prednisolone started 11/16/2024 for alcoholic hepatitis. Bilirubin trending down now. Calculated Lille score in 1 week and improving, finish 28-day course.
After discharge, follow-up with Dr. Renee as outpatient.
Will follow in hospital
Assessment / Plan
-
1. 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
possibly of hepatic encephalopathy. He is now overall clinically much improved. Elevated LFTs likely some component of acute alcohol hepatitis as well. He states he does follow-up with Dr. Renee, last seen in August. His exam is improved, no
obvious ascites on ultrasound. At this point will await morning labs, bilirubin was slightly lower yesterday, will continue to trend meld/DF. If worsening will discuss with Dr. Renee. Severe thrombocytopenia secondary to acute alcohol bone marrow
effects, no signs of bleeding now.
Summary: 54 y/o male with past medical history of alcohol abuse with prior seizure, decompensated cirrhosis with ascites, grade 3 esophageal varices with red williams sign status post banding x 5 (09/2023), status post TIPS 11/2023 (followed at [place]
[facility]), no paracentesis since TIPS, thrombocytopenia, depression, anxiety, hernia repair, has gone through liver transplant eval at [place] was removed from transplant ready list given low MELD. Follows with [facility]
routinely with last set of labs in July. Immune to hepatitis A. Has gone through hepatitis B vaccine series. Due for routine MRI surveillance. Current medications include Lasix 40 mg, spironolactone 100 mg, thiamine 100 mg and folic acid 1 mg
daily who presents to the emergency room with increasing confusion and jaundice. Asked to evaluate for the same. Patient without any abdominal pain. Does admit to recurrent alcohol use. He states he started back up in July. He states he
stopped drinking on Wednesday however comes in with a positive alcohol level of 484. I was able to review his outside labs in April as well as July. His bilirubin started to rise in July as well as his AST. This corresponds to the time
that he admits to start drinking again. He also stopped obtaining his lab work since that time as well. Labs in April were total bilirubin 3.3, AST 78, ALT 37 alk phos of 129, MELD 3.0= 14. July labs total bilirubin 5.4, AST 157, ALT 66
alk phos 166. Currently labs total bilirubin 11.4, AST 291, ALT 90, alk phos 177. He does have a lactic acid of 2.3. Crescenciorey discriminant function of 32.1 this would rule him in for prednisolone therapy however will check UA and blood cultures
first as well as chest x-ray before initiating prednisolone. Ultrasound the abdomen has already been obtained without any significant ascites. TIPS is patent. Current MELD 3.0 =21 tox screen is also pending. Acetaminophen level is less than 10.
Assessment/Plan:
#Liver cirrhosis secondary to alcohol s/p TIPS
Discriminant 57.4 - MELD 25, no current plants for transfer to [place].
Continue Aldactone 100 mg and Lasix 40 mg apart from lactulose 20 mg 3 times a day. Titrate to up to 3 bowel movements a day, monitor electrolytes and replete.
Prednisolone started 11/16/2024 for alcoholic hepatitis. Bilirubin trending down now. Calculated Lille score in 1 week and improving, finish 28-day course.
After discharge, follow-up with Dr. Renee as outpatient.
Will follow in hospital
Subjective
Subjective
Date of Service: November 18, 2024
No events overnight. No abdominal pain, nausea or vomiting.
1 brown bowel movement reported but no blood. No confusion episodes.
Objective
Data Reviewed
Laboratory Data:
Laboratory Results
11/18/24 06:34
11/18/24 06:34
Laboratory Results
PT 22.1 Sec (11.4-14.6) H 11/18/24 06:34
INR 1.92 11/18/24 06:34
APTT 43.4 Sec (23.4-35.0) H 11/13/24 20:37
Phosphorus Cancelled 11/13/24 19:23
Magnesium 2.0 mg/dl (1.6-2.3) 11/18/24 06:34
Total Bilirubin 10.9 mg/dl (0.2-1.3) H 11/18/24 06:34
AST 123 U/L (17-59) H 11/18/24 06:34
ALT 69 U/L (0-50) H 11/18/24 06:34
Alkaline Phosphatase 183 U/L (38-126) H 11/18/24 06:34
Vital Signs and I&O:
Vital Signs
Temp Pulse Resp BP Pulse Ox
97.8 F 75 15 110/71 96
11/18/24 11:00 11/18/24 11:00 11/18/24 11:00 11/18/24 11:00 11/18/24 11:00
I&O
11/17/24 11/18/24 11/19/24
06:59 06:59 06:59
Intake Total 1560 / 1560 480 / 480
Output Total 400 / 400
Balance 1560 / 1560 80 / 80
Physical Exam
Physical Exam
GI: Soft, Non Distended and Non Tender
[2024-11-18 15:20] VITALS: BP 120/74
--- NOTE | 2024-11-18 16:29 | W.PN.UPDATE ---
Update Note
Progress Note Update
54 y/o man with alcoholic cirrhosis admitted 11/13/24 and is on MSAS and Phenobarb detox. Had BAL of 484, relapsed last month drinking a pint of vodka a day. Had wanted to leave AMA but Dr. Bah found he di not have capacity and was unsteady on
his feet.
Today he is alert and calm. no tremor. No GI complaints. Eating dinner. Has 1:1. He is oriented to place and situation. He is now willing to continue his treatment.
Psychiatry will sign-off. Re-consult if needed.
[2024-11-18 23:29] VITALS: BP 118/65
[2024-11-19 06:00] VITALS: BMI 22.5
[2024-11-19 06:10] LABS: % Basophils 0.7 % (0-2); % Eosinophils 1.6 % (0-6); % Immature Granulocytes 1.1 % (0-0.5); % Lymphocytes 18.9 % (20.5-51.1); % Monocytes 15.3 % (1.7-9.3); % Neutrophils 62.4 % (42.2-75.2); Absolute Eosinophils 0.1 10^3/uL (0-0.7); Absolute Immature Granulocytes 0.1 10^3/uL (0-0.05); Absolute Monocytes 0.8 10^3/uL (0.1-0.6); Absolute Neutrophils 3.4 10^3/uL (1.4-6.5); Hematocrit 29.7 % (39.0-52.0); Hemoglobin 10.6 g/dL (13.0-18.0); Mean Corp Hgb Conc. 35.7 g/dL (33.0-37.0); Mean Corpuscular Hgb 34.2 pg (27.0-31.0); Mean Corpuscular Volume 95.8 fL (80.0-94.0); Mean Platelet Volume 10.6 fL (7.4-10.4); Nucleated Red Blood Cells % 0 % (-); Platelet Count 55 10^3/uL (130-400); Red Cell Dist. Width 17.2 % (11.5-14.5); White Blood Cell Count 5.5 10^3/uL (4.8-10.8)
[2024-11-19 06:11] LABS: INR 1.79
[2024-11-19 06:45] LABS: ALT (SGPT) 65 U/L (0-50); AST (SGOT) 108 U/L (17-59); Albumin 3.1 g/dl (3.5-5.0); Alkaline Phosphatase 134 U/L (38-126); Blood Urea Nitrogen 15 mg/dl (9-20); Calcium 8.3 mg/dl (8.4-10.2); Carbon Dioxide 26 mmol/L (22-30); Chloride 98 mmol/L (98-107); Estimated Creatinine Clearance > 125 ml/min; Glucose 129 mg/dl (70-99); Magnesium 2.3 mg/dl (1.6-2.3); Phosphorus 3.7 mg/dl (2.5-4.5); Potassium 3.5 mmol/L (3.5-5.1); Sodium 132 mmol/L (135-145); Total Protein 6.4 g/dl (6.3-8.2); eGFR > 60.00
[2024-11-19 07:30] VITALS: BP 93/52
[2024-11-19 08:45] VITALS: BP 112/68
[2024-11-19] MEDS: LUMINAL 32.4 MG PO ×2 (08:55→17:16)
[2024-11-19] MEDS: NEURONTIN 200 MG PO (08:55)
[2024-11-19] MEDS: MAGNESIUM OXIDE 500 MG PO ×2 (08:55→22:20)
[2024-11-19] MEDS: DUPHALAC/CHRONULAC 20 GRAMS PO ×3 (08:55→22:20)
[2024-11-19] MEDS: PRELONE 40 MG PO (08:55)
[2024-11-19] MEDS: VITAMIN B1 100 MG PO ×2 (08:55→22:20)
[2024-11-19] MEDS: FOLVITE 1 MG PO (08:56)
[2024-11-19] MEDS: ALDACTONE 100 MG PO (09:00)
[2024-11-19] MEDS: LASIX PO (09:01)
--- NOTE | 2024-11-19 09:57 | W.PN.HOSP.TC ---
Today's Communication/Plan
-
Improving, if withdrawal resolves - might be for d/c
Assessment / Plan
Assessment / Plan
54yo M with PMHx of alcohol abuse, liver cirrhosis s/p TIPS in Aug 2023 came with 3 days of worsening mentation and loosing balance. He said that he is feeling unstable on his legs. He still was drinking 1 pint of vodka daily. Found jaundice and
elevated ammonia. No abdominal pain on assessment. Pancytopenia improving. LFT variable so still under monitoring
A/P:
#Acute alcoholic hepatitis with liver cirrhosis and TIPS
#Acute toxic metabolic encephalopathy
Lactulose TID titrate to 2 BM per day
follow MELD labs
Maudeey discriminant function on admission - 39 - GI recommended to hold off Prednisolone until infection w/u result or if LFT with INR worsening
GI consult: started Prednisolone on 11/16/24, Josselin score on 11/23/24
US RUQ with contracted gall bladder, no signs of cholecystitis, CBD 5mm without signs of choledocholithiasis
Vit K given on 11/17/24 since with alcoholism usually depleted
No RUQ pain
#Alcohol abuse with impending withdrawal
Phenobarb taper
MSAS and Ativan
Thiamine/Folate
B12, folate level WNL
Psych consult: lacks capacity for medical decisions, cannot leave AMA
Low threshold for Precedex
#Mild hyponatremia
follow BMP
Urine Osm
#Hypokalemia
#Hypomagnesemia
replete and follow
#Pancytopenia
2/2 alcohol abuse
follow CBC
If continues to worsen - Hematology consult
SCDs for ppx
DNR/DNI - patient AAOx3, able to justify his choice and persistent in it. Confirmed after prolonged and detailed conversation
We have spent at least 55min reviewing chart, test results, communication with consultants, family and providing direct patient care
Anticipated Discharge: 24 - 48 hours
Subjective/Interval History
-
Date of Service: November 19, 2024
Objective Data
-
Labs:
Laboratory Results
11/19/24
05:24
WBC 5.5
Hgb 10.6 L
Hct 29.7 L
Plt Count 55 L
PT 21.0 H
INR 1.79
Sodium 132 L
Potassium 3.5
Chloride 98
Carbon Dioxide 26
BUN 15
Creatinine 0.6 L
Glucose 129 H
Calcium 8.3 L
Total Bilirubin 9.0 H
AST 108 H
ALT 65 H
Alkaline Phosphatase 134 H
Vital Signs:
Vital Signs
Temp Pulse Resp BP Pulse Ox
98.3 F 67 16 109/73 97
11/19/24 07:30 11/19/24 07:30 11/19/24 07:30 11/19/24 09:00 11/19/24 07:30
I&O
11/18/24 11/19/24 11/20/24
06:59 06:59 06:59
Intake Total 480 / 480 780 / 780
Output Total 400 / 400 350 / 350
Balance 80 / 80 430 / 430
Review of Systems
-
History Source: Patient
All other systems: Reviewed and negative
Physical Exam
-
General: No Apparent Distress
HEENT: Normocephalic
GI: Soft, Nontender and Nondistended
Neuro: Awake, Alert and AO x 3
Psych: Calm and Confused
--- NOTE | 2024-11-19 12:10 | PTCARENOTE ---
Patient and staff still unable to locate cell phone. Nursing radiology supervisor made aware.
--- NOTE | 2024-11-19 12:44 | W.PN.GI.CBS2 ---
Today's Communication / Plan
-
#Liver cirrhosis secondary to alcohol s/p TIPS
MELD score 11/19/24-46
11/16/24 Discriminant 57.4 - MELD 25, no current plants for transfer to [place].
Currently seems to be oriented x 3 and previously he was oriented x 2. Seems to be improving and bilirubin trending down.
Continue Aldactone 100 mg and Lasix 40 mg apart from lactulose 20 mg 3 times a day. Titrate to up to 3 bowel movements a day, monitor electrolytes and replete.
Prednisolone started 11/16/2024 for alcoholic hepatitis. Bilirubin trending down now. Calculated Lille score in 1 week and improving, finish 28-day course.
After discharge, follow-up with Dr. Renee as outpatient.
Will follow in hospital
Assessment / Plan
-
1. 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
possibly of hepatic encephalopathy. He is now overall clinically much improved. Elevated LFTs likely some component of acute alcohol hepatitis as well. He states he does follow-up with Dr. Renee, last seen in August. His exam is improved, no
obvious ascites on ultrasound. At this point will await morning labs, bilirubin was slightly lower yesterday, will continue to trend meld/DF. If worsening will discuss with Dr. Renee. Severe thrombocytopenia secondary to acute alcohol bone marrow
effects, no signs of bleeding now.
Summary: 54 y/o male with past medical history of alcohol abuse with prior seizure, decompensated cirrhosis with ascites, grade 3 esophageal varices with red williams sign status post banding x 5 (09/2023), status post TIPS 11/2023 (followed at [place]
[facility]), no paracentesis since TIPS, thrombocytopenia, depression, anxiety, hernia repair, has gone through liver transplant eval at [place] was removed from transplant ready list given low MELD. Follows with [facility]
routinely with last set of labs in July. Immune to hepatitis A. Has gone through hepatitis B vaccine series. Due for routine MRI surveillance. Current medications include Lasix 40 mg, spironolactone 100 mg, thiamine 100 mg and folic acid 1 mg
daily who presents to the emergency room with increasing confusion and jaundice. Asked to evaluate for the same. Patient without any abdominal pain. Does admit to recurrent alcohol use. He states he started back up in July. He states he
stopped drinking on Wednesday however comes in with a positive alcohol level of 484. I was able to review his outside labs in April as well as July. His bilirubin started to rise in July as well as his AST. This corresponds to the time
that he admits to start drinking again. He also stopped obtaining his lab work since that time as well. Labs in April were total bilirubin 3.3, AST 78, ALT 37 alk phos of 129, MELD 3.0= 14. July labs total bilirubin 5.4, AST 157, ALT 66
alk phos 166. Currently labs total bilirubin 11.4, AST 291, ALT 90, alk phos 177. He does have a lactic acid of 2.3. Madrey discriminant function of 32.1 this would rule him in for prednisolone therapy however will check UA and blood cultures
first as well as chest x-ray before initiating prednisolone. Ultrasound the abdomen has already been obtained without any significant ascites. TIPS is patent. Current MELD 3.0 =21 tox screen is also pending. Acetaminophen level is less than 10.
Assessment/Plan:
#Liver cirrhosis secondary to alcohol s/p TIPS
MELD score 11/19/24-46
11/16/24 Discriminant 57.4 - MELD 25, no current plants for transfer to [place].
Currently seems to be oriented x 3 and previously he was oriented x 2. Seems to be improving and bilirubin trending down.
Continue Aldactone 100 mg and Lasix 40 mg apart from lactulose 20 mg 3 times a day. Titrate to up to 3 bowel movements a day, monitor electrolytes and replete.
Prednisolone started 11/16/2024 for alcoholic hepatitis. Bilirubin trending down now. Calculated Lille score in 1 week and improving, finish 28-day course.
After discharge, follow-up with Dr. Renee as outpatient.
Will follow in hospital
Subjective
Subjective
Date of Service: November 19, 2024
Patient without any complaints, tolerating diet, had 1 loose bowel movement yesterday. No episodes of confusion or agitation.
Objective
Data Reviewed
Laboratory Data:
Laboratory Results
11/19/24 05:24
11/19/24 05:24
Laboratory Results
PT 21.0 Sec (11.4-14.6) H 11/19/24 05:24
INR 1.79 11/19/24 05:24
APTT 43.4 Sec (23.4-35.0) H 11/13/24 20:37
Phosphorus 3.7 mg/dl (2.5-4.5) 11/19/24 05:24
Magnesium 2.3 mg/dl (1.6-2.3) 11/19/24 05:24
Total Bilirubin 9.0 mg/dl (0.2-1.3) H 11/19/24 05:24
AST 108 U/L (17-59) H 11/19/24 05:24
ALT 65 U/L (0-50) H 11/19/24 05:24
Alkaline Phosphatase 134 U/L (38-126) H 11/19/24 05:24
Vital Signs and I&O:
Vital Signs
Temp Pulse Resp BP Pulse Ox
98.3 F 67 16 109/73 97
11/19/24 07:30 11/19/24 07:30 11/19/24 07:30 11/19/24 09:00 11/19/24 07:30
I&O
11/18/24 11/19/24 11/20/24
06:59 06:59 06:59
Intake Total 480 / 480 780 / 780
Output Total 400 / 400 350 / 350
Balance 80 / 80 430 / 430
Physical Exam
Physical Exam
GI: Soft, Non Distended and Non Tender
[2024-11-19 15:00] VITALS: BP 108/61
[2024-11-19] MEDS: NEURONTIN 100 MG PO ×2 (17:16→22:20)
[2024-11-19 23:33] VITALS: BP 123/73
[2024-11-20 06:00] VITALS: BMI 22.6
[2024-11-20 06:40] LABS: INR 1.76; PT 20.7 Sec (11.4-14.6)
[2024-11-20 06:41] LABS: % Basophils 1.3 % (0-2); % Eosinophils 2.2 % (0-6); % Immature Granulocytes 1.1 % (0-0.5); % Lymphocytes 21.1 % (20.5-51.1); % Neutrophils 57.3 % (42.2-75.2); Absolute Basophils 0.1 10^3/uL (0-0.2); Absolute Eosinophils 0.1 10^3/uL (0-0.7); Absolute Immature Granulocytes 0.1 10^3/uL (0-0.05); Absolute Monocytes 0.8 10^3/uL (0.1-0.6); Absolute Neutrophils 2.6 10^3/uL (1.4-6.5); Hematocrit 29.1 % (39.0-52.0); Hemoglobin 10.6 g/dL (13.0-18.0); Mean Corp Hgb Conc. 36.4 g/dL (33.0-37.0); Mean Corpuscular Hgb 34.5 pg (27.0-31.0); Mean Corpuscular Volume 94.8 fL (80.0-94.0); Mean Platelet Volume 10.8 fL (7.4-10.4); Nucleated Red Blood Cells % 0 % (-); Platelet Count 53 10^3/uL (130-400); Red Blood Cell Count 3.07 10^6/uL (4.70-6.10); White Blood Cell Count 4.6 10^3/uL (4.8-10.8)
[2024-11-20 07:04] LABS: ALT (SGPT) 66 U/L (0-50); AST (SGOT) 94 U/L (17-59); Albumin 2.9 g/dl (3.5-5.0); Alkaline Phosphatase 143 U/L (38-126); Blood Urea Nitrogen 14 mg/dl (9-20); Calcium 8.2 mg/dl (8.4-10.2); Carbon Dioxide 25 mmol/L (22-30); Chloride 102 mmol/L (98-107); Estimated Creatinine Clearance > 125 ml/min; Glucose 136 mg/dl (70-99); Magnesium 2.4 mg/dl (1.6-2.3); Potassium 3.6 mmol/L (3.5-5.1); Sodium 132 mmol/L (135-145); Total Bilirubin 7.7 mg/dl (0.2-1.3); Total Protein 6.1 g/dl (6.3-8.2); eGFR > 60.00
[2024-11-20 07:25] VITALS: BP 138/94
--- NOTE | 2024-11-20 09:15 | W.PN.GI.CBS2 ---
Addendum entered and electronically signed by Diana Licona MD 11/20/24 16:28:
I saw and examined the patient.
The AD WRITER or PA's note was reviewed and I agree with the note.
Comment: Patient without any complaints. Feels well, tolerating diet.
Okay to be discharged. He has prescriptions to get labs done 11/22 and I also discussed with patient's mother regarding this.
He has numbers to call [facility] and will follow-up with Dr. Renee.
Marcella Randall arranged for follow-up with Dr. Lee as outpatient
Original Note:
Today's Communication / Plan
-
possible discharge tocday pending PT eval
MELD 3.0 23 improving, DF 43 with control of 13
will need lille score 11/22- I left labs slip for repeat labs and stressed to patient need for compliance
sent message for GI follow up and will need follow up with Dr. Renee
cont Predisolone likely to complete 28 days if lille score stable then taper Per Dr. Renee or Dr. Lee
cont Lasix 40mg and Aldactone 100mg daily
returns to hospital for recurrent problems
reviewed again with patient absolute ETOH abstinence
Assessment / Plan
-
Summary: 54 y/o male with past medical history of alcohol abuse with prior seizure, decompensated cirrhosis with ascites, grade 3 esophageal varices with red williams sign status post banding x 5 (09/2023), status post TIPS 11/2023 (followed at [place]
[facility]), no paracentesis since TIPS, thrombocytopenia, depression, anxiety, hernia repair, has gone through liver transplant eval at [place] was removed from transplant ready list given low MELD. Follows with [place]
routinely with last set of labs in July. Immune to hepatitis A. Has gone through hepatitis B vaccine series. Due for routine MRI surveillance. On admission meds Lasix 40 mg, spironolactone 100 mg, thiamine 100 mg and folic acid 1 mg daily who
presents to the emergency room with increasing confusion and jaundice with recurrent ETOH use since July. Labs in April were total bilirubin 3.3, AST 78, ALT 37 alk phos of 129, MELD 3.0= 14. [facility] labs total bilirubin 5.4, AST 157,
ALT 66 alk phos 166. Admission labs with total bilirubin 11.4, AST 291, ALT 90, alk phos 177 with further rise and start of Steroids 11/16 after review with Doyle with slow improvement.
11/13/24 US abdomen
Contracted gallbladder. 4 mm shadowing gallstone is present. No evidence for pericholecystic edema, and the patient has a negative sonographic Tipton's sign.
There is no evidence for biliary ductal dilation.
Diffuse increased echogenicity of the liver with increased attenuation of the ultrasound beam, findings compatible with hepatocellular disease and/or fatty infiltration in this patient with a history of cirrhosis. TIPS shunt is visualized and is
patent.
Mild splenomegaly.
-cirrhosis with prior decompensation with ascites/portal HTN, varicies with prior bandin and prior tips
-recurrent ETOH use with ETOH hepatitis
-confusion on admission
-marked thrombocytopenia with pancytopenia
-hypoalbuminemia
-coagulopathy
-ETOH abuse
-hyponatermia
Assessment/Plan:
possible discharge tocday pending PT eval
MELD 3.0 23 improving, DF 43 with control of 13
will need lille score 11/22- I left labs slip for repeat labs and stressed to patient need for compliance
sent message for GI follow up and will need follow up with Dr. Renee
cont Predisolone likely to complete 28 days if lille score stable then taper Per Dr. Renee or Dr. Lee
cont Lasix 40mg and Aldactone 100mg daily
returns to hospital for recurrent problems
reviewed again with patient absolute ETOH abstinence
Subjective
Subjective
Date of Service: November 20, 2024
11/20 brown stool on regular diet
Objective
Data Reviewed
Laboratory Data:
Laboratory Results
11/20/24 06:10
11/20/24 06:10
Laboratory Results
PT 20.7 Sec (11.4-14.6) H 11/20/24 06:10
INR 1.76 11/20/24 06:10
APTT 43.4 Sec (23.4-35.0) H 11/13/24 20:37
Phosphorus 3.7 mg/dl (2.5-4.5) 11/19/24 05:24
Magnesium 2.4 mg/dl (1.6-2.3) H 11/20/24 06:10
Total Bilirubin 7.7 mg/dl (0.2-1.3) H 11/20/24 06:10
AST 94 U/L (17-59) H 11/20/24 06:10
ALT 66 U/L (0-50) H 11/20/24 06:10
Alkaline Phosphatase 143 U/L (38-126) H 11/20/24 06:10
Vital Signs and I&O:
Vital Signs
Temp Pulse Resp BP Pulse Ox
98.3 F 65 17 123/73 96
11/19/24 23:33 11/19/24 23:33 11/19/24 23:33 11/19/24 23:33 11/19/24 23:33
I&O
11/19/24 11/20/24 11/21/24
06:59 06:59 06:59
Intake Total 780 / 780 1340 / 1340
Output Total 350 / 350 250 / 250
Balance 430 / 430 1090 / 1090
Physical Exam
Physical Exam
HEENT: Other (jaundice )
Cardiology: Normal Sinus Rhythm
Pulmonary: Clear
GI: Soft, Non Distended and Non Tender
Extremities: No Edema
Neuro: Non Focal
[2024-11-20] MEDS: DUPHALAC/CHRONULAC 20 GRAMS PO (09:35)
[2024-11-20] MEDS: FOLVITE 1 MG PO (09:35)
[2024-11-20] MEDS: MAGNESIUM OXIDE 500 MG PO (09:35)
[2024-11-20] MEDS: NEURONTIN 100 MG PO (09:35)
[2024-11-20] MEDS: LASIX 40 MG PO (09:35)
[2024-11-20] MEDS: ALDACTONE 100 MG PO (09:36)
[2024-11-20] MEDS: PRELONE 40 MG PO (09:36)
[2024-11-20] MEDS: VITAMIN B1 100 MG PO (09:36)
--- NOTE | 2024-11-20 09:36 | W.PN.HOSP.TC ---
Today's Communication/Plan
-
PT - for the dispo, appropriate for d/c
Assessment / Plan
Assessment / Plan
54yo M with PMHx of alcohol abuse, liver cirrhosis s/p TIPS in Aug 2023 came with 3 days of worsening mentation and loosing balance. He said that he is feeling unstable on his legs. He still was drinking 1 pint of vodka daily. Found jaundice and
elevated ammonia. No abdominal pain on assessment. Pancytopenia improving. LFT improved. Patient selected rehab and planning to go there upon d/c. Strict alcohol abstinence advised.
A/P:
#Acute alcoholic hepatitis with liver cirrhosis and TIPS
#Acute toxic metabolic encephalopathy
Lactulose TID titrate to 2 BM per day
follow MELD labs
Maudeey discriminant function on admission - 39 - GI recommended to hold off Prednisolone until infection w/u result or if LFT with INR worsening
GI consult: started Prednisolone on 11/16/24, Lille score on 11/23/24
US RUQ with contracted gall bladder, no signs of cholecystitis, CBD 5mm without signs of choledocholithiasis
Vit K given on 11/17/24 since with alcoholism usually depleted
No RUQ pain
#Alcohol abuse with impending withdrawal
Phenobarb taper
MSAS and Ativan
Thiamine/Folate
B12, folate level WNL
Psych consult: lacks capacity for medical decisions, cannot leave AMA
Low threshold for Precedex
#Mild hyponatremia
follow BMP
Urine Osm
#Hypokalemia
#Hypomagnesemia
replete and follow
#Pancytopenia
2/2 alcohol abuse
follow CBC
If continues to worsen - Hematology consult
SCDs for ppx
DNR/DNI - patient AAOx3, able to justify his choice and persistent in it. Confirmed after prolonged and detailed conversation
We have spent at least 55min reviewing chart, test results, communication with consultants, family and providing direct patient care
Anticipated Discharge: Within 24 hours
Subjective/Interval History
-
Date of Service: November 20, 2024
Objective Data
-
Labs:
Laboratory Results
11/20/24
06:10
WBC 4.6 L
Hgb 10.6 L
Hct 29.1 L
Plt Count 53 L
PT 20.7 H
INR 1.76
Sodium 132 L
Potassium 3.6
Chloride 102
Carbon Dioxide 25
BUN 14
Creatinine 0.5 L
Glucose 136 H
Calcium 8.2 L
Total Bilirubin 7.7 H
AST 94 H
ALT 66 H
Alkaline Phosphatase 143 H
Vital Signs:
Vital Signs
Temp Pulse Resp BP Pulse Ox
98.3 F 65 18 138/94 97
11/20/24 07:25 11/20/24 07:25 11/20/24 07:25 11/20/24 07:25 11/20/24 07:25
I&O
11/19/24 11/20/24 11/21/24
06:59 06:59 06:59
Intake Total 780 / 780 1340 / 1340
Output Total 350 / 350 250 / 250
Balance 430 / 430 1090 / 1090
Review of Systems
-
History Source: Patient
All other systems: Reviewed and negative
Physical Exam
-
General: No Apparent Distress
HEENT: Normocephalic
Respiratory: Clear to Auscultation
GI: Soft, Nontender and Nondistended
Neuro: Awake, Alert, Oriented and AO x 3
Psych: Calm
[2024-11-20 10:54] VITALS: BP 136/79; PULSE 70
--- NOTE | 2024-11-20 12:30 | W.DCSUMMARY ---
Addendum entered and electronically signed by Hunter Fields MD 11/20/24 13:24:
Rx for Rolling walker provided
Original Note:
Discharge Summary
Discharge Data
Date of Admission: 11/13/24
Date of Discharge: 11/20/24
-
Pending Results: No
Hospital Course
54yo M with PMHx of alcohol abuse, liver cirrhosis s/p TIPS in Aug 2023 came with 3 days of worsening mentation and loosing balance. He said that he is feeling unstable on his legs. He still was drinking 1 pint of vodka daily. Found jaundice and
elevated ammonia. No abdominal pain on assessment. Pancytopenia improving. LFT improved. Patient selected rehab and planning to go there upon d/c. Strict alcohol abstinence advised. His mentation returned to baseline, he is reasonable in his
choices. Skilled rehab advised by PT, but he declined, justifying that he will be staying on the 1st floor of his home and agreeable for home PT. Patient at this time has capacity to make medcial decisions. He completed his phenobarb taper, was
working on his laptom this AM. WIll follow with GI for further mgmnt
We have spent at least 55min reviewing chart, test results, communication with consultants, family and providing direct patient care
Patient was managed for:
#Acute alcoholic hepatitis with liver cirrhosis and TIPS
#Acute toxic metabolic encephalopathy
#Alcohol abuse with impending withdrawal
#Mild hyponatremia
#Hypokalemia
#Hypomagnesemia
#Pancytopenia
Discharge Plan
-
Patient Disposition: Home with Home Care
Discharge Diagnosis/Procedures: Alcoholic hepatitis
Diet: Regular
Activity: As tolerated
Blood Work: obtain CBC, comp, and INR 11/22--- see slip on chart sent to [facility] call GI to review labs and plan for steroids
Others Tests: AVOID ALL ALCOHOL
Referrals:
Rich Lee MD [Active] - (follow up 2-4 week with ETOH hepatitis/cirrhosis )
NONE,* [Family Provider] -
Alexander Renee MD [Non-Admitting Privileges] - (follow up with recurrent ETOH hepatitis/cirrhosis )
Prescriptions:
New
lactulose 10 gram/15 mL Solution
20 g PO TID Qty: 1200 0RF
Rx Instructions:
titrate for 2 BM per day
prednisolone sodium phosphate 15 mg/5 mL (3 mg/mL) Solution
40 mg PO DAILY Qty: 15 0RF
Continued
furosemide 40 mg Tablet
40 mg PO DAILY
spironolactone 100 mg Tablet
100 mg PO DAILY
thiamine HCl (vitamin B1) 100 mg Tablet
100 mg PO DAILY
diphenhydramine HCl [Benadryl] 25 mg Capsule
25 mg PO HSPRN PRN (Reason: SLEEP)
folic acid 1 mg Tablet
1 mg PO DAILY
Discharge Orders:
Discharge Patient (As Directed); Ordered 11/20/24
Ordered By: Hunter Fields
Discharge Date and Time
Print Language: [place]
--- NOTE | 2024-11-20 12:54 | CM ---
Chart reviewed. Patient alert and calm. Psych signed off from patient. Therapy now recommending skilled rehab at d/c.
Discussed w/ patient bedside regarding rehab, patient shared he prefers to go home w/ home PT. Patient shared he is comfortable going home as he is aware of his unsteadiness. Patient stated he can stay on the first floor of the home that has a
bathroom. Patient shared he will sleep on the couch, something that he always does anyway. Patient agreeable to [facility] for HC provider. Patient shared his mother will be able to pick him up once CM informed him that once the hospitalist
is updated on plan for home, he will d/c today.
Updated hospitalist, informed will d/c today
[facility] referral faxed to [phone]
[facility]

Plan: Home w/ [facility] services
[2024-11-20 14:58] VITALS: BP 126/68
== END 2024-11-20 15:30 | disposition home health service (06) | DRG 432 ==
LOC: 4 EAST ACU 17:20
PROVIDERS: Emergency Medicine; Internal Medicine Gastroenterology; Nurse Practitioner; Physician Assistant; Registered Nurse; ADMITTING PHYSICIAN Internal Medicine; CONSULT PHYSICIAN Internal Medicine Gastroenterology; EMERGENCY PHYSICIAN Emergency Medicine; OTHER PHYSICIAN Psychiatry & Neurology Psychiatry
DX: K70.10 Alcoholic hepatitis without ascites (principal); G92.8 Other toxic encephalopathy; F10.239 Alcohol dependence with withdrawal, unspecified; E87.1 Hypo-osmolality and hyponatremia; E87.20 Acidosis, unspecified; D61.818 Other pancytopenia; K76.6 Portal hypertension; I85.10 Secondary esophageal varices without bleeding; Z66 Do not resuscitate; E87.6 Hypokalemia; E83.42 Hypomagnesemia; D69.59 Other secondary thrombocytopenia; F32.A Depression, unspecified; F41.9 Anxiety disorder, unspecified; K70.30 Alcoholic cirrhosis of liver without ascites; K76.82 Hepatic encephalopathy; F10.229 Alcohol dependence with intoxication, unspecified; Y90.8 Blood alcohol level of 240 mg/100 ml or more; F17.210 Nicotine dependence, cigarettes, uncomplicated; K31.89 Other diseases of stomach and duodenum; K80.20 Calculus of gallbladder without cholecystitis without obstruction; Z96.89 Presence of other specified functional implants; Z79.899 Other long term (current) drug therapy; Z91.51 Personal history of suicidal behavior
CPT/HCPCS: 71046; 76700; 80053; 80143; 80306; 81003; 81015; 82077; 82140; 82248; 82607; 82746; 82977; 83605; 83735; 83935; 84100; 85025; 85027; 85610; 85730; 87040; 87086; 97116; 97162; 97530; 99285

== ENCOUNTER 2024-11-24 10:11 | Emergency (ER) | payer OTHER, SELFPAY ==
[2024-11-24 10:17] LABS: Glucose - Point of Care 218 mg/dl (70-99)
[2024-11-24 10:18] VITALS: BP 114/71
--- NOTE | 2024-11-24 11:12 | ED.GENMED ---
History of Present Illness
General
Chief Complaint: Abnormal Lab Value
Source: patient
Exam Limitations: none
Time Seen by Provider: 11/24/24 10:58
History of Present Illness
History of Present Illness:
54-year-old male with history of alcoholic cirrhosis status post TIPS procedure in 24 done at [facility] recently discharged from this hospital 4 days ago presents after outpatient labs demonstrated hyperglycemia. No prior history of diabetes. He
states yesterday when he has blood drawn he was functioning going grocery shopping and felt normal. He does note increased urination however he has been on Lasix. He denies excessive thirst chest pain or shortness of breath. No fevers. No other
complaints at this time
Past History
Past History
ED Past Medical History: Psychiatric (Previous suicide attempt, depression, anxiety, alcohol abuse); Negative HTN or Hypercholesterolemia
ED Past Surgical History: Other (Hernia repair)
Social History
Alcohol: Daily
Drug: None
Personal: Single
Living: with family
Employment: Employed
Family History
Family History: Other
Phy Exam
Physical Exam
Physical Exam:
General: Jaundiced male no acute respiratory distress
HEENT: NC/AT
HEart: RRR, no murmurs
Lungs; CTA
Abd: soft, distended, nontender
Ext: no cyanosis or edema
skin: jaundice
Neuro: alert and oriented x 3. No facial asymetry.
Course
Orders/Labs/Results
Orders:
Orders
11/24/24 11:09
Complete Blood Count/With Diff Urgent
Comprehensive Metabolic Panel Urgent
Lipase Urgent
Abnormal Lab Results
11/24/24 11/24/24
10:15 11:09
WBC 3.4 L 10^3/uL
(4.8-10.8)
RBC 3.26 L 10^6/uL
(4.70-6.10)
Hgb 11.0 L g/dL
(13.0-18.0)
Hct 31.9 L %
(39.0-52.0)
MCV 97.9 H fL
(80.0-94.0)
MCH 33.7 H pg
(27.0-31.0)
RDW 16.9 H %
(11.5-14.5)
Plt Count 44 L 10^3/uL
(130-400)
MPV 11.7 H fL
(7.4-10.4)
Absolute Lymphs (auto) 0.5 L 10^3/uL
(1.2-3.4)
Immature Gran % 1.2 H %
(0-0.5)
Lymphocytes % 13.2 L %
(20.5-51.1)
Monocytes % 12.9 H %
(1.7-9.3)
Sodium 134 L mmol/L
(135-145)
Creatinine 0.6 L mg/dL
(0.7-1.3)
Glucose 202 H mg/dl
(70-99)
Calcium 8.2 L mg/dl
(8.4-10.2)
Total Bilirubin 6.9 H mg/dl
(0.2-1.3)
AST 117 H U/L
(17-59)
ALT 83 H U/L
(0-50)
Alkaline Phosphatase 187 H U/L
(38-126)
Total Protein 6.1 L g/dl
(6.3-8.2)
Albumin 3.1 L g/dl
(3.5-5.0)
POC Glucose 218 H mg/dl
(70-99)
11/24/24 11:09
11/24/24 11:09
Vital Signs
Initial and Last Documented VS:
Initial Vital Signs
Temp Pulse Resp BP Pulse Ox
98.2 F 64 16 114/71 98
11/24/24 10:18 11/24/24 10:18 11/24/24 10:18 11/24/24 10:18 11/24/24 10:18
Last Documented Vital Signs
Temp Pulse Resp BP Pulse Ox
98.2 F 64 16 103/65 98
11/24/24 10:18 11/24/24 10:18 11/24/24 10:18 11/24/24 12:00 11/24/24 12:30
MDM/Problems Addressed
Differential Diagnosis Includes:
Elevated glucose levels as outpatient. Patient is alert and oriented. Will recheck labs and assess for any type of acidosis. Patient has history of alcoholic cirrhosis and recent admission for the same.
*Critical Care Note
Total Time (30-74mins, 75-104mins- exclusive of procedures): Not Applicable
Update Note
Update Note:
Serum glucose 202. Sodium normal no evidence of DKA normal renal functions bilirubin has improved. Patient feels well. At this point no indication for admission but will start on metformin 500 mg twice a day. He follows up with his specialist in
3 days. Stable for discharge
ED Attending Note
-
Portions of this chart may have been created with voice recognition software.� Occasional wrong word or��sound alike� substitutions may have occurred due to the inherent limitations of voice recognition software.
Discharge Plan
Departure
Patient Disposition: Home (Routine Discharge)
Date of Disposition: 11/24/24
Time of Disposition: 12:57
Patient with high blood pressure during this ER visit?: No
Discharge Problem:
Hyperglycemia
Instructions: High blood sugar in adults - ED discharge instructions
Prescriptions:
New
metformin 500 mg tablet
500 mg PO BID Qty: 30 0RF
No Action
furosemide 40 mg Tablet
40 mg PO DAILY
spironolactone 100 mg Tablet
100 mg PO DAILY
thiamine HCl (vitamin B1) 100 mg Tablet
100 mg PO DAILY
diphenhydramine HCl [Benadryl] 25 mg Capsule
25 mg PO HSPRN PRN (Reason: SLEEP)
folic acid 1 mg Tablet
1 mg PO DAILY
lactulose 10 gram/15 mL Solution
20 g PO TID Qty: 1200 0RF
Rx Instructions:
titrate for 2 BM per day
prednisolone sodium phosphate 15 mg/5 mL (3 mg/mL) Solution
40 mg PO DAILY Qty: 237 0RF
Rx Instructions:
take 40mg daily for 28 days then taper down by 5mg every 5 days until stopped
Referrals:
Anali Saleh DO [Family Provider] -
Activity Restrictions/Additional Instructions:
As discussed, your blood sugar today was 202. Start metformin twice a day. Follow-up with your doctor as planned. Return if needed
Interventions
Interventions:
*Risk Screen - Suicide Last Done: 11/24/24 10:18
*General Assessment Last Done: 11/24/24 11:04
*Neglect/Abuse Screening Last Done: 11/24/24 10:18
*ED- Fall Risk Assessment Last Done: 11/24/24 11:04
*ED COVID-19 Vaccine History Last Done: 11/24/24 11:04
Discharge Date and Time
Print Language: WELSH
[2024-11-24 11:14] VITALS: BP 116/68
[2024-11-24 11:32] LABS: % Basophils 0.9 % (0-2); % Eosinophils 0.6 % (0-6); % Immature Granulocytes 1.2 % (0-0.5); % Lymphocytes 13.2 % (20.5-51.1); % Monocytes 12.9 % (1.7-9.3); % Neutrophils 71.2 % (42.2-75.2); Absolute Lymphocytes 0.5 10^3/uL (1.2-3.4); Absolute Monocytes 0.4 10^3/uL (0.1-0.6); Absolute Neutrophils 2.4 10^3/uL (1.4-6.5); Hematocrit 31.9 % (39.0-52.0); Mean Corp Hgb Conc. 34.5 g/dL (33.0-37.0); Mean Corpuscular Hgb 33.7 pg (27.0-31.0); Mean Corpuscular Volume 97.9 fL (80.0-94.0); Nucleated Red Blood Cells % 0 % (-); Red Blood Cell Count 3.26 10^6/uL (4.70-6.10); Red Cell Dist. Width 16.9 % (11.5-14.5); White Blood Cell Count 3.4 10^3/uL (4.8-10.8)
[2024-11-24 11:45] LABS: ALT (SGPT) 83 U/L (0-50); AST (SGOT) 117 U/L (17-59); Albumin 3.1 g/dl (3.5-5.0); Alkaline Phosphatase 187 U/L (38-126); Blood Urea Nitrogen 11 mg/dl (9-20); Calcium 8.2 mg/dl (8.4-10.2); Carbon Dioxide 26 mmol/L (22-30); Chloride 101 mmol/L (98-107); Glucose 202 mg/dl (70-99); Lipase 165 U/L (23-300); Potassium 4.1 mmol/L (3.5-5.1); Sodium 134 mmol/L (135-145); Total Bilirubin 6.9 mg/dl (0.2-1.3); Total Protein 6.1 g/dl (6.3-8.2); eGFR > 60.00
[2024-11-24 12:00] VITALS: BP 103/65
[2024-11-24 12:27] LABS: Mean Platelet Volume 11.7 fL (7.4-10.4); Platelet Count 44 10^3/uL (130-400)
[2024-11-24 13:00] VITALS: BP 103/68
== END 2024-11-24 13:39 | disposition home or self-care (01) ==
LOC: EMR 10:11
PROVIDERS: Physician Assistant; EMERGENCY PHYSICIAN Emergency Medicine; FAMILY PHYSICIAN Family Medicine
DX: R73.9 Hyperglycemia, unspecified (principal); K70.30 Alcoholic cirrhosis of liver without ascites
CPT/HCPCS: 99283; 80053; 82962; 83690; 85025

== ENCOUNTER → 2025-01-19 15:49 | Outpatient (REF) | payer OTHER, SELFPAY | LOC: RCS 15:49 | PROVIDERS: ATTENDING PHYSICIAN Physician Assistant Medical; FAMILY PHYSICIAN Family Medicine | DX: R01.1 Cardiac murmur, unspecified (principal); E78.2 Mixed hyperlipidemia; R17 Unspecified jaundice | CPT/HCPCS: 93306 ==